=== PATIENT | male | born 1960 | race Caucasian/White ===

== ENCOUNTER 2020-01-08 19:33 | Inpatient (IN) | payer OTHER, SELFPAY ==
--- NOTE | ~2020-01-08 | CT_ITS ---
EXAMINATION: CTA BRAIN/CAROTID DATE: 01/08/2020 20:50 INDICATION: Left-sided hemiparesis and numbness and tingling. TECHNIQUE: Computed tomographic angiography (CTA) of the head and neck was performed with 100 mL Omni paque-350 intravenous contrast. Multiplanar reconstructions and maximum intensity projection 3D-recon structions of the carotid arteries and of the intracranial arteries were created by the technologist on a separate workstation. Precontrast CT of the head was also obtained. Automated exposure control and iterative reconstruction technique were employed.The dose-length product was 1811.12 mGy-cm. COMPARISON: None. FINDINGS: Carotid arteries: There is 10% stenosis of the right carotid bulb relative to normal distal artery lumen diameter (NASC ET criteria). There is small amount of atherosclerotic plaque with 0% stenosis of the left carotid bu lb relative to normal distal artery lumen diameter. The right vertebral artery is dominant with dimin utive left vertebral artery extending through a congenitally small left-sided transverse foramina. Re spiratory motion at the apices of the lungs. Mild cervical spondylosis. Head: Small old lacunar infarcts at the head of the left caudate nucleus, at the right lentiform nucleus an d at the right side of the jasper. No acute intracranial hemorrhage, acute infarction or abnormal extra axial fluid collection. There is mild scattered white matter hypoattenuation consistent with chronic small vessel ischemic disease. Ventricles are normal and symmetric. No mass/mass effect. The orbits , paranasal sinuses and mastoid air cells are normal. Intracranial arteries: Extensive atherosclerotic plaque at the bilateral carotid siphons with mild, <50% stenosis. There is no hemodynamically significant stenosis in the vertebral, basilar and internal carotid arteries. Ther e are no aneurysms identified. The bilateral A1 and left P1 segments are patent. The right posterior cerebral arteries supplied via a patent right posterior communicating artery. There is also a patent anterior communicating artery. Cerebral arterial arborization appears symmetric. IMPRESSION: 1. 10% stenosis of the right carotid bulb relative to normal distal artery lumen diameter (NASCET cri teria). 2. 0% stenosis of the left carotid bulb relative to normal distal artery lumen diameter. 3. Nonhemodynamically significant atherosclerotic plaque at the bilateral carotid siphons. No hemodyn amically significant stenosis or aneurysm of the cerebral arteries. 3. Old lacunar infarcts at the left caudate nucleus, right lentiform nucleus and right jasper. Reviewed, dictated and finalized at location A. IMPRESSION: 1. 10% stenosis of the right carotid bulb relative to normal distal artery lume n diameter (NASCET criteria). 2. 0% stenosis of the left carotid bulb relative to normal distal artery lumen diameter. 3. Nonhemodynamically significant atherosclerotic plaque at the bilateral carot id siphons. No hemodynamically significant stenosis or aneurysm of the cerebral arteries. 3. Old lacunar infarcts at the left caudate nucleus, right lentiform nucleus an d right jasper.
--- NOTE | ~2020-01-08 | MR_ITS ---
EXAMINATION: MR brain/brain stem wo con DATE: 01/09/2020 13:07 INDICATION: Left hemiparesis. TECHNIQUE: Magnetic resonance imaging (MRI) of the brain and brainstem was performed without intraven ous contrast. Sequences included sagittal and axial T1-weighted FSE, axial diffusion-weighted FS EPI, axial T2*-weighted GRE, axial T2-weighted FLAIR Propeller, and axial T2-weighted Propeller. Apparent diffusion coefficient (ADC) maps were created. COMPARISON: Head CT 01/01/2020 FINDINGS: There is an acute infarct in the jasper on the right. There is a punctate acute infarct in th e right frontal lobe deep white matter. There are 2 small acute infarcts in the left frontal lobe scott p white matter. There is a punctate acute infarct in right occipital lobe. There is a punctate acute infarct in the right temporal lobe deep white matter. There is no intracranial hemorrhage or abnormal mass lesion. There are scattered areas of nonspecific increased T2-weighted signal intensity in the cerebral white matter. There are old lacunar infarcts in the bilateral basal ganglia. The ventricles are normal in size. There is mild mucosal thickening in the paranasal sinuses. The orbits are normal. The mastoid air cells are normal. IMPRESSION: 1. Acute infarcts in the jasper, bilateral frontal lobes, right temporal lobe, and right occipital lobe . 2. Old lacunar infarcts in the bilateral basal ganglia. 3. Mild nonspecific cerebral white matter disease, which likely represents chronic small vessel ische yesi disease. Reviewed, dictated and finalized at location A. IMPRESSION: 1. Acute infarcts in the jasper, bilateral frontal lobes, right temporal lobe, an d right occipital lobe. 2. Old lacunar infarcts in the bilateral basal ganglia. 3. 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
[2020-01-08 19:36] VITALS: BP 178/111; PULSE 73; RESP 15; TEMP 36.3; O2SAT 100
--- NOTE | 2020-01-08 19:56 | ECG_ITS ---
Measurements Intervals [place] Rate: 64 P: 60 MI: 172 QRS: 33 QRSD: 100 T: 67 QT: 400 QTc: 413 Interpretive Statements SINUS RHYTHM NORMAL ECG Electronically Signed On 01-09-2020 6:55:34 CDT by Freddy Parker D.O.
[2020-01-08 20:12] LABS: Basophils Absolute Auto 0.1 K/mm3 (0.0-0.1); Basophils Percent Auto 0.7 % (0.2-1.2); Eosinophils Absolute Auto 0.2 K/mm3 (0-0.3); Hematocrit 42.9 % (42.0-52.0); Hemoglobin 14.4 g/dL (14.0-18.0); Immature Granulocyte Absolute 0.08 K/mm3 (0.00-0.031); Lymphocytes Absolute Auto 1.81 K/mm3 (0.9-3.2); Lymphocytes Percent Auto 22.6 % (18.3-44.2); Mean Corpuscular HGB Conc 33.6 g/dl (32-36); Mean Corpuscular Hemoglobin 29.9 pg (26-34); Mean Corpuscular Volume 89.2 fl (80-100); Mean Platelet Volume 10.8 fl (7.4-10.4); Monocytes Absolute Auto 0.7 K/mm3 (0.1-0.6); Monocytes Percent Auto 9.2 % (2.6-8.5); Neutrophils Absolute Auto 5.1 K/mm3 (1.3-6.7); Neutrophils Percent Auto 63.5 % (45.5-73.1); Platelet Count Result 340 k/mm3 (150-375); Red Blood Count 4.81 M/mm3 (4.6-6.20); Red Cell Distribution Width 13.7 % (11.5-14.5)
[2020-01-08 20:24] LABS: Alanine Aminotransferase 32 U/L (4-50); Albumin Level 4.3 g/dL (3.5-5.1); Alkaline Phosphatase 97 U/L (38-126); Anion Gap 10 mmol/L (8-16); Aspartate Amino Transferase 28 U/L (17-59); Bilirubin,Total 0.8 mg/dL (0.2-1.3); Blood Urea Nitrogen 18 mg/dL (9-20); Calcium 9.1 mg/dL (8.4-10.2); Carbon Dioxide 29 mmol/L (22-30); Chloride 103 mmol/L (98-107); Estimated Glomerular Filt Rate 56; Glucose 85 mg/dL (75-110); Potassium 3.3 mmol/L (3.4-5.0); Sodium 142 mmol/L (137-145)
[2020-01-08 20:25] LABS: Partial Thromboplastin Time 28.1 SECONDS (22.3-36.8); Prothrombin Time 12.4 Seconds (11.1-14.7)
[2020-01-08 20:29] LABS: Add Urine Microscopic? YES; Appearance Urine Clear (Clear); Bacteria Urine Trace /hpf; Bilirubin Urine Negative (Negative); Blood Urine Negative (Negative); Color Urine Yellow (Yellow); Glucose Urine UA Negative (Negative); Ketones Urine Negative (Negative); Leukocyte Esterase Ur Negative LEU/UL (Negative); Mucus Urine Few /lpf; Nitrate Urine Negative (Negative); Protein Urine 1+ mg/dL (Negative); Specific Grav Ur 1.027 (1.001-1.035); Squamous Epithelial Cell Urine Rare /hpf (Few)
[2020-01-08] MEDS: POTASSIUM CHLORIDE 20 MEQ TABLET PO (20:31)
--- NOTE | 2020-01-08 20:42 | ED.GENADULT ---
HPI - General Adult General Chief complaint: Neuro Symptoms/Deficit Stated complaint: left sided numbness x1 week Time Seen by Provider: 01/08/20 19:50 Source: patient History of Present Illness HPI narrative: Patient is a 59 y/o male complaining of mild left sided weakness and numbness for about 1 week. There is alleviating or exacerbating factor. He states that his symptoms are waxing and waning. He is able move all 4 extremities and walk. He states that he has been dropping things from left hand intermittently. Related Data Home Medications Medication Instructions Recorded Confirmed carvedilol 6.25 mg PO BID 01/08/20 01/09/20 lisinopril-hydrochlorothiazide 1 tablet PO BID 01/08/20 01/09/20 Allergies Allergy/AdvReac Type Severity Reaction Status Date / Time No Known Allergies Allergy Uncoded 03/23/19 10:35 Review of Systems Constitutional: Constitutional: Denies chills, Denies fever(s), Denies headache(s) and Reports weakness Eyes: Eyes: Denies blurry vision ENT: Denies headache(s) and Denies neck pain Cardiovascular: Cardiovascular: Denies chest pain and Denies dyspnea Respiratory: Respiratory: Denies cough and Denies dyspnea Gastrointestinal: Gastrointestinal: Denies abdominal pain, Denies diarrhea, Denies nausea and Denies vomiting Genitourinary: Genitourinary: Denies hematuria and Denies dysuria Musculoskeletal: Musculoskeletal: Denies back pain and Denies neck pain Neurologic: Denies headache(s), Reports focal weakness, Reports numbness, Reports tingling and Denies weakness [facility] Family History Family History (Updated 01/09/20 @ 00:50 by Mindy Edwards RN) Other Unknown family medical history Social History Social History Smoking status: Never smoker Alcohol intake: unknown Substance use: never Substance use type: does not use Spiritual care concerns: No Exam Const: General: no acute distress and well developed Orientation/consciousness: oriented to person, oriented to place, oriented to time and patient oriented x3 HENMT: Head: normocephalic Ears: external ears normal General nose exam: Normal external nose present Eyes: General: appearance normal, both eyes and all related structures Conjunctivae: conjunctivae normal Neck: Neck: normal visual inspection and full ROM Chest: Chest palpation & inspection: normal inspection of the chest and no tenderness Resp: Effort & Inspection: normal respiratory effort Auscultation: clear to auscultation bilaterally Cardio: Rate: regular rate Rhythm: regular rhythm GI: GI Palp: No abdominal tenderness and Yes Soft to palpation Skin: General skin exam: normal color and turgor normal Neuro: General: oriented to person, oriented to place, oriented to time and patient oriented x3 Cranial nerves: Yes CN's II-XII intact bilaterally Cognition (Neuro): normal cognition Speech: normal speech Motor exam (neuro): 5/5 motor strength present throughout Sensory Exam: Sensory deficit (Neuro) (decreased sensation on left side) Coordination: No [id number] test normal (some diffculty left finger to nose) Extrem: General: normal to inspection, full ROM and no pedal edema Psych: Appearance: grossly normal Mental Status: mental status grossly normal Affect: normal affect Course Consultations Consultation #1: Discussed with Dr. Campa (neurology), who agrees to consult. He recommends MRI and Echo. Date: 01/08/20 Time: 21:36 Consultation #2: Discussed with Dr. Abarca, who agrees to admit. Date: 01/08/20 Time: 23:20 Vital Signs Vital signs: Vital Signs Temperature 36.3 C L 01/08/20 19:36 Pulse Rate 73 01/08/20 19:36 Respiratory Rate 15 01/08/20 19:36 Blood Pressure 178/111 H 01/08/20 19:36 Pulse Oximetry 100 01/08/20 19:36 Temperature 36.4 C L 01/09/20 06:00 Pulse Rate 66 01/09/20 08:00 Respiratory Rate 21 H 01/09/20 06:00 Blood Pressure 151/90 H 01/09/20
[2020-01-08] MEDS: ASPIRIN 81 MG CHEWABLE TABLET 324 MG PO (21:35)
[2020-01-08] MEDS: lisinopriL 20 MG TABLET PO (21:36)
[2020-01-08 21:38] VITALS: BP 225/115; PULSE 89; RESP 18; O2SAT 100
[2020-01-08] MEDS: amLODIPine BESYLATE 5 MG TABLET 10 MG PO (22:00)
--- NOTE | 2020-01-08 22:06 | PC.NURSE ---
pt denies taking home meds, states stopped taking them not working.
[2020-01-08 23:05] VITALS: BP 202/111; PULSE 64; RESP 18; O2SAT 100
[2020-01-09] VITALS (11 sets, daily range): BP systolic 150–201; BP diastolic 85–110; PULSE 60–80; RESP 16–21; TEMP 36.4–36.7; O2SAT 96–100; BMI 37.7
--- NOTE | 2020-01-09 00:27 | ADMGEN ---
This patient, Juan Alberto Saeed, was admitted to 2 Medical Room 261-01. Patient/family oriented to hospital policies and general routines including ID bracelet, bed and alarms, visiting hours, pain management, procedures, bathroom and other care routines, personal items, smoking policy, room service/diet, and visiting hours. Valuables list has been completed. Information on how to activate the Rapid Response Team has been discussed. Patient/Family are encouraged to report perceived risks to care and to ask questions if they do not understand what they are told or what they should do.
--- NOTE | 2020-01-09 01:13 | PC.NURSE ---
Pt agitated and wanted more pillows, yelling at staff that he needed more pillows. Pillows obtained for patient but pt remains agitated and did not wish to answer questions for admission. Questions asked quickly for patient and patient stated he was done and wanted to go to sleep. Pt remains agitated but wants to go to sleep.
--- NOTE | 2020-01-09 06:00 | ECHO_ITS ---
Patient Info Name: Juan Alberto Saeed Age: 59 years : 1960 Gender: Male Ht: 66 in Wt: 240 lbs BSA: 2.30 m2 HR: 57 bpm BP: 188 / 91 mmHg Technical Quality: Good Exam Date: 01/09/2020 11:27 AM Exam Location: [facility] Patient Status: Outpatient Admit Date: 01/08/2020 Staff Ordering Physician: Nirmala Guy MD Manager Mortgage: Salvatore Méndez RDCS, RT Attending Provider: No Grimaldo PA-C Referring Physician: Brooks EDOUARD; Exam Type: CA echo doppler color flow Study Info Indications I63.219 - Cerebral infarction due to unspecified occlusion or stenosis of unspecified vertebral arteries Complete two-dimensional, color flow and Doppler transthoracic echocardiogram is performed. Summary 1. Left ventricular chamber dimension is normal. 2. Left ventricular systolic function is normal, estimated at 60-65%. 3. There is moderately increased left ventricular wall thickness. 4. The left ventricular diastolic function is grade I diastolic dysfunction. 5. E/e' 14 is mildly elevated. 6. Global longitudinal strain is abnormal at -13.1%. 7. The mitral valve has moderately calcified annulus. 8. Dilated inferior vena cava with >50% collapse upon inspiration consistent with elevated right atrial pressure, 10 mmHg. Left Ventricle E/e' 14 is mildly elevated. Global longitudinal strain is abnormal at -13.1%. Left ventricular chamber dimension is normal. Left ventricular systolic function is normal, estimated at 60-65%. There is moderately increased left ventricular wall thickness. The left ventricular diastolic function is grade I diastolic dysfunction. Right Ventricle Right ventricular chamber dimension is normal. Right ventricular systolic function is normal. Left Atria Left atrial chamber dimension is normal. Right Atria Right atrial chamber dimension is normal. Aortic Valve The aortic valve is trileaflet. There is no aortic valve stenosis. There is no aortic valve regurgitation. Pulmonic Valve There is no pulmonic regurgitation. Mitral Valve The mitral valve has moderately calcified annulus. There is no mitral valve stenosis. There is no mitral valve regurgitation. Tricuspid Valve There is no tricuspid valve regurgitation. Pericardium/Pleural There is no pericardial effusion. Inferior Vena Cava Dilated inferior vena cava with >50% collapse upon inspiration consistent with elevated right atrial pressure, 10 mmHg. Aorta The aortic root size at the sinus of Valsalva is normal. Left Ventricular Outflow Tract Name Value Normal LVOT 2D LVOT Diameter 2.1 cm LVOT Doppler LVOT Peak Gradient 5 mmHg LVOT Mean Gradient 3 mmHg LVOT VTI 23 cm LVOT VTI/AV VTI Ratio 1.1 LVOT Stroke Volume 82 ml LVOT CO 4.3 l/min LVOT CI 1.9 l/min/m2 Mitral Valve Name Value Normal
[2020-01-09 06:08] LABS: Cholesterol 157 mg/dL (0-200); HDL Direct 43 mg/dL; Triglycerides 124 mg/dL (<150)
[2020-01-09 06:18] LABS: LDL Cholesterol Direct 93 mg/dL
[2020-01-09] MEDS: lisinopriL 10 MG TABLET PO ×2 (08:16→16:30)
[2020-01-09] MEDS: hydroCHLOROthiazide 12.5 MG CAPSULE PO ×2 (08:16→16:30)
[2020-01-09] MEDS: ASPIRIN 81 MG CHEWABLE TABLET PO (08:16)
[2020-01-09] MEDS: carvediloL 6.25 MG TABLET PO ×2 (08:16→16:30)
--- NOTE | 2020-01-09 14:39 | PM.IMHP ---
H&P: HPI History of Present Illness Date/Time: 01/09/20 14:39 Chief complaint: left sided weakness Narrative: Juan Alberto Saeed is a 59 year old male For the past medical history of hypertension does not regularly see primary care doctor who presented emergency room for left-sided weakness x1 week. Patient states that he was working outside last Wednesday and came inside and felt off. He said his left arm and leg became tingly and when he got up to walk he could not walk straight. 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 He has not had any problems with speech or swallowing. He also has had some blurry vision and dizziness since this all happened. He denies chest pain, shortness of breath, palpitations, rashes or wounds. with permission the patient, I asked the girlfriend if she has noticed any changes. She has not noticed any NEW anger or impulsivity Review of Systems Review of Systems: All systems reviewed & are unremarkable except as noted in HPI and below PMFSH Past Medical History Medical History (Updated 01/09/20 @ 15:43 by No Grimaldo PA-C) Hypertension Surgical History Surgical History (Updated 01/09/20 @ 15:43 by No Grimaldo PA-C) H/O umbilical hernia repair Family History Family History (Updated 01/09/20 @ 15:44 by oN Grimaldo PA-C) Mother Medical history unknown Other Unknown family medical history Social History Social History (Updated 01/09/20 @ 15:45 by No Grimaldo PA-C) Social History: patient does not smoke, never smoked cigarettes, no marijuana or drugs. Would like to be a full code. If he is unable to make decisions for him he wants no one to be his surrogate decision maker and ' god will make all the decisions'. he understands he can designate anyone at any time. He is not working at this time and not on disability. Smoking status: Never smoker Alcohol intake: unknown Substance use: never Substance use type: does not use Spiritual care concerns: No Meds Home Medications and Allergies Home Medications Medication Instructions Recorded Confirmed Type carvedilol 6.25 mg PO BID 01/08/20 01/09/20 History lisinopril-hydrochlorothiazide 1 tablet PO BID 01/08/20 01/09/20 History Allergies Allergy/AdvReac Type Severity Reaction Status Date / Time No Known Allergies Allergy Uncoded 03/23/19 10:35 Vital Signs Vital Signs - 24 hr 01/08/20 19:36 01/08/20 21:38 01/08/20 23:05 Temperature 97.4 F L Pulse Rate 73 89 64 Respiratory Rate 15 18 18 Blood Pressure 178/111 H 225/115 H 202/111 H Pulse Oximetry 100 100 100 01/09/20 00:18 01/09/20 01:12 01/09/20 02:00 Temperature 98.0 F 98.1 F Pulse Rate 65 80 76 Respiratory Rate 18 20 Blood Pressure 201/110 H 188/91 H Pulse Oximetry 100 99 01/09/20 04:00 01/09/20 06:00 01/09/20 08:00 Temperature 97.5 F L Pulse Rate 68 76 66 Respiratory Rate 21 H Blood Pressure 151/90 H Pulse Oximetry 100 01/09/20 12:00 Temperature Pulse Rate 60 Respiratory Rate Blood Pressure Pulse Oximetry Exam Narrative: Exam Narrative: General:Well developed well nourished patient Resting comfortably in bed in no acute distress HEENT: Normocephalic, atraumatic, PERRL, Sclerae anicteric, oral mucosa moist. Neck: Supple Resp: CTA Heart: RRR, telemetry shows no abnormalities other than an occasional PVC Abd: Soft, non- distended. No pain to palpation. Positive bowel sounds Skin: Warm and dry Extremities: No swelling, erythema or pain to palpation Neuro: Alert and Oriented x4 . CN 2-12 intact. No focal neurological deficits. Able to do [id number] bilaterally and rapid alternating movements. 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 H&P: Results Labs Labs: Short CBC 01/08/20 Range/Units 20:07 WBC 8.0 (4.5-10.0) K/mm3 Hgb 14.4 (14.0-18.0) g/dL Hct 42.9 (42.0-52.0) % Plt Count 340 (150-375) k/mm3 [facility] 12/22
--- NOTE | 2020-01-09 15:05 | WPDNEURCNPN ---
Assessment and Plan Assessment and plan (1) Hemianesthesia: Code(s): R20.0 - Anesthesia of skin Status: Acute (2) Brainstem stroke: Code(s): I63.9 - Cerebral infarction, unspecified Status: Acute (3) Ischemic stroke of frontal lobe: Code(s): I63.9 - Cerebral infarction, unspecified Status: Acute (4) Occipital stroke: Code(s): I63.9 - Cerebral infarction, unspecified Status: Acute Additional Plan patient is already on aspirin I hope is being monitor for any evidence of atrial fibrillation he would need a cardiology consultation including the transesophageal echocardiogram to make sure he does not have a cardiac source for his bilateral strokes on the other hand the patient has not seen any physicians in the past we do not know exactly what other medical conditions he have underlying ex of the high blood pressure He was not quite receptive to this examiner in wanted to go to sleep however his girl friend was present and I told her that he needs the further workup Consult date: 01/09/20 Time Seen: 14:30 HPI: Juan Alberto Saeed is a 59 year old male is right-handed and quite upset because I woke him up from his sleep his girlfriend is present and whatever information I was able to extract from him and from his girlfriend is as follows The patient has had and numbness of the left side for almost 8 days today without any headache nausea vomiting chest pain or shortness of breath his numbness remains the same however the motor examination is clearly is nonfocal his brain MRI reveals multiple bilateral strokes including the brainstem and it is likely that it is hypertensive in nature however it is also likely from the cardiac source he has not been able to see any primary care physician for many years and he probably does not have 1 the headache neck and CTA are clearly negative results of the echocardiogram are pending he will need a full cardiac workup to rule out any evidence of the cardiac source including the [facility] Family History Family History Other Unknown family medical history Social History Social History Smoking status: Never smoker Alcohol intake: unknown Substance use: never Substance use type: does not use Spiritual care concerns: No Meds Home Medications and Allergies Home Medications Medication Instructions Recorded Confirmed Type carvedilol 6.25 mg PO BID 01/08/20 01/09/20 History lisinopril-hydrochlorothiazide 1 tablet PO BID 01/08/20 01/09/20 History Allergies Allergy/AdvReac Type Severity Reaction Status Date / Time No Known Allergies Allergy Uncoded 03/23/19 10:35 Vital Signs Vital Signs - 24 hr 01/08/20 19:36 01/08/20 21:38 01/08/20 23:05 Temperature 36.3 C L Pulse Rate 73 89 64 Respiratory Rate 15 18 18 Blood Pressure 178/111 H 225/115 H 202/111 H Pulse Oximetry 100 100 100 01/09/20 00:18 01/09/20 01:12 01/09/20 02:00 Temperature 36.7 C 36.7 C Pulse Rate 65 80 76 Respiratory Rate 18 20 Blood Pressure 201/110 H 188/91 H Pulse Oximetry 100 99 01/09/20 04:00 01/09/20 06:00 01/09/20 08:00 Temperature 36.4 C L Pulse Rate 68 76 66 Respiratory Rate 21 H Blood Pressure 151/90 H Pulse Oximetry 100 01/09/20 12:00 Temperature Pulse Rate 60 Respiratory Rate Blood Pressure Pulse Oximetry Exam Const: General: comfortable and no acute distress HENMT: General nose exam: Normal nares present Mouth: Yes moist mucous membranes Eyes: General: appearance normal, both eyes and all related structures Neck: Neck: supple and no JVD Resp: Effort & Inspection: normal respiratory effort Auscultation: clear to auscultation bilaterally Cardio: Rate: regular rate Rhythm: regular rhythm GI: Auscultation: normal bowel sounds Skin: General skin exam: normal color and no rashes or lesions noted Neuro: O
--- NOTE | 2020-01-09 15:18 | PCPTNOTE ---
Spoke with nursing. Nursing reports the patient has no skilled PT needs-is independent with mobility. Nursing reports patient being verbally aggressive right now and has not yet been informed of CVA yet-mri results just received. Note put in by PT to discontinue therapy. Ellen Unger PT
[2020-01-10] VITALS (11 sets, daily range): BP systolic 145–172; BP diastolic 81–94; PULSE 55–74; RESP 14–16; TEMP 36.6–36.8; O2SAT 97–100
[2020-01-10] MEDS: ASPIRIN 81 MG CHEWABLE TABLET PO (09:30)
[2020-01-10] MEDS: carvediloL 6.25 MG TABLET PO (09:30)
[2020-01-10] MEDS: ATORVASTATIN 20 MG TABLET PO (09:31)
[2020-01-10] MEDS: lisinopriL 10 MG TABLET PO (09:31)
[2020-01-10] MEDS: hydroCHLOROthiazide 12.5 MG CAPSULE PO (09:31)
[2020-01-10 09:38] LABS: Basophils Percent Auto 0.6 % (0.2-1.2); Eosinophils Absolute Auto 0.3 K/mm3 (0-0.3); Eosinophils Percent Auto 3.9 % (0-4.4); Hematocrit 40.7 % (42.0-52.0); Hemoglobin 13.9 g/dL (14.0-18.0); Immature Granulocyte Absolute 0.06 K/mm3 (0.00-0.031); Immature Granulocyte Percent A 0.9 % (0-0.5); Lymphocytes Absolute Auto 1.63 K/mm3 (0.9-3.2); Lymphocytes Percent Auto 23.6 % (18.3-44.2); Mean Corpuscular HGB Conc 34.2 g/dl (32-36); Mean Corpuscular Hemoglobin 30.2 pg (26-34); Mean Corpuscular Volume 88.3 fl (80-100); Mean Platelet Volume 10.5 fl (7.4-10.4); Monocytes Absolute Auto 0.6 K/mm3 (0.1-0.6); Monocytes Percent Auto 8.8 % (2.6-8.5); Neutrophils Absolute Auto 4.3 K/mm3 (1.3-6.7); Neutrophils Percent Auto 62.2 % (45.5-73.1); Platelet Count Result 317 k/mm3 (150-375); Red Blood Count 4.61 M/mm3 (4.6-6.20); Red Cell Distribution Width 13.8 % (11.5-14.5); White Blood Count 6.9 K/mm3 (4.5-10.0)
[2020-01-10 09:50] LABS: Magnesium 1.9 mg/dL (1.6-2.3)
[2020-01-10 09:57] LABS: Anion Gap 8 mmol/L (8-16); Blood Urea Nitrogen 21 mg/dL (9-20); Calcium 8.6 mg/dL (8.4-10.2); Carbon Dioxide 27 mmol/L (22-30); Chloride 102 mmol/L (98-107); Estimated CRCL calculation 61 ml/min; Estimated Glomerular Filt Rate 56; Glucose 99 mg/dL (75-110); Potassium 3.2 mmol/L (3.4-5.0); Sodium 137 mmol/L (137-145)
--- NOTE | 2020-01-10 10:40 | PC.NURSE ---
Patient agreeable to LINDA at this time. Called to notify Dr. Vaz. He stated he would contact anesthesiology to verify their schedule/timing and to keep patient NPO at this time.
--- NOTE | 2020-01-10 11:18 | PM.CNCAR ---
Assessment and Plan Assessment and plan (1) Acute CVA (cerebrovascular accident): Code(s): I63.9 - Cerebral infarction, unspecified Status: Acute Assessment and Plan: Acute infarction in the jasper, 2 small infarcts left frontal lobe, punctate right temporal lobe, punctate right occipital lobe with old lacunar infarction in bilateral basal ganglia. Pattern concerning for embolic showering possibly related to undiagnosed atrial fibrillation/flutter although there is no prior history, symptoms, or documentation thus far. We discussed mechanisms for acute CVA particularly given bilateral multiple areas and my concern for intracardiac source of emboli. we discussed potential advantages with doing transesophageal echocardiogram to exclude intracardiac thrombus, evaluate more definitively for intracardiac shunt at atrial level (ASD/PFO) and how this would changes management. We discussed role and indications for systemic anticoagulation versus aspirin, potential for ASD/PFO closure given stroke if identified if appropriate. Pt verbalized understanding. stated he wanted to discuss with his girlfriend further before making a decision. Patient explained he was distrustful of other people, did not like seeing doctors, or taking medications. He initially started to imply all that was being done for him was to pad the bill on his insurance. He quickly abandoned this thought after further discussion and my explanation that he is not being forced to do anything. I simply am here to offer my service to help him understand what has happened to him and how best to reduce his risk for complications. He appreciated our discussion and will consider LINDA. He states he has a very strong gag reflex and that he will have to knocked out with Anesthesiology. Risks, benefits, alternatives discussed. -Outpatient 20 day commissioner of relocation services to assess for A.Fib/flutter -ASA, statin, ELIS-I. (2) Hypertension: Qualifiers: Hypertension type: unspecified Qualified Code(s): I10 - Essential (primary) hypertension Code(s): I10 - Essential (primary) hypertension Status: Acute Assessment and Plan: uncontrolled presentation. Remains elevated. Continue antihypertensive regimen. (3) PVCs (premature ventricular contractions): Code(s): I49.3 - Ventricular premature depolarization Status: Acute Assessment and Plan: Asymptomatic, occasional noted on telemetry. No atrial fibrillation and/or atrial flutter observed thus far on telemetry. No prior known history or symptoms suggestive of AFib/flutter. (4) Dyslipidemia: Code(s): E78.5 - Hyperlipidemia, unspecified Status: Acute Assessment and Plan: Goal LDL less than 70 given CVA. Continue statin therapy. Would advise increased to 40 mg at bedtime. History of Present Illness History of Present Illness Consult date/time: Date of service: 01/10/20 11:18 This is a cardiology consultation at [facility] LINDA in setting of acute embolic stroke. Requesting physician: No Grimaldo PA-C Consult reason: Other (stroke, transesophageal echocardiogram) Reason For Visit: left sided weakness Narrative: patient is a 59-year-old male does not receive routine medical care with a past medical history significant for hypertension, dyslipidemia presented to the emergency department complains of 1 week of left-sided upper and lower extremity weakness numbness in his fingers and hand. He states he is working out in the heat not drinking enough water and feels this is why his symptoms began. 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 Denies difficulty swallowing, dysphagia, choking, confusion, bleeding, chest pain, palpitations or shortness of breath. No syncope, near-syncope lower extremity edema orthop
--- NOTE | 2020-01-10 12:48 | WPDANESEPPF ---
Anes - Initial Pre Proc Eval Procedure: Operation Date: 01/10/20 13:30 Proposed Procedures p Trans Esophageal Echo - Jarod Bruno MD Date/Time: 01/10/20 12:48 Pre Op Diagnosis: left sided weakness Patient Data Age: 59 Gender: M Height: 1.68 m Weight: 106.1 kg Last Vital Signs Temp 36.6 C 01/10/20 09:36 Pulse 60 01/10/20 12:00 Resp 16 01/10/20 09:36 BP 165/94 H 01/10/20 09:36 Pulse Ox 100 01/10/20 09:36 Allergies Allergy/AdvReac Type Severity Reaction Status Date / Time No Known Allergies Allergy Uncoded 03/23/19 10:35 Home Medications Medication Instructions Recorded Confirmed Type carvedilol 6.25 mg PO BID 01/08/20 01/09/20 History lisinopril-hydrochlorothiazide 1 tablet PO BID 01/08/20 01/09/20 History Laboratory Tests 01/10/20 01/10/20 01/10/20 09:22 09:22 09:22 WBC 6.9 K/mm3 K/mm3 (4.5-10.0) RBC 4.61 M/mm3 M/mm3 (4.6-6.20) Hgb 13.9 g/dL L g/dL (14.0-18.0) Hct 40.7 % L % (42.0-52.0) MCV 88.3 fl fl (80-100) MCH 30.2 pg pg (26-34) MCHC 34.2 g/dl g/dl (32-36) RDW 13.8 % % (11.5-14.5) Plt Count 317 k/mm3 k/mm3 (150-375) MPV 10.5 fl H fl (7.4-10.4) Immature Gran % (Auto) 0.9 % H % (0-0.5) Neut % (Auto) 62.2 % % (45.5-73.1) Lymph % (Auto) 23.6 % % (18.3-44.2) [place] % (Auto) 8.8 % H % (2.6-8.5) Eos % (Auto) 3.9 % % (0-4.4) Baso % (Auto) 0.6 % % (0.2-1.2) Lymph # (Auto) 1.63 K/mm3 K/mm3 (0.9-3.2) [place] # (Auto) 0.6 K/mm3 K/mm3 (0.1-0.6) Eos # (Auto) 0.3 K/mm3 K/mm3 (0-0.3) Baso # (Auto) 0.0 K/mm3 K/mm3 (0.0-0.1) Abs Immat Gran (auto) 0.06 K/mm3 H K/mm3 (0.00-0.031) Absolute Neuts (auto) 4.3 K/mm3 K/mm3 (1.3-6.7) Absolute Nucleated RBC 0.0 K/mm3 K/mm3 (0.0-0.012) Nucleated RBC % 0.0 % % (0.0-0.2) Sodium 137 mmol/L mmol/L (137-145) Potassium 3.2 mmol/L L mmol/L (3.4-5.0) Chloride 102 mmol/L mmol/L (98-107) Carbon Dioxide 27 mmol/L mmol/L (22-30) Anion Gap 8 mmol/L mmol/L (8-16) BUN 21 mg/dL H mg/dL (9-20) Creatinine 1.30 mg/dL mg/dL (0.7-1.3) Estim Creat Clear Calc 61 ml/min ml/min Estimated GFR 56 L (59 - ) Glucose 99 mg/dL mg/dL (75-110) Calcium 8.6 mg/dL mg/dL (8.4-10.2) Magnesium 1.9 mg/dL mg/dL (1.6-2.3) ECG: Date of Service: 01/08/20 Procedure(s): CA 12 lead EKG Accession Number(s): [id number] cc: ~ Measurements Intervals [place] Rate: 64 P: 60 [place]: 172 QRS: 33 QRSD: 100 T: 67 QT: 400 QTc: 413 Interpretive Statements SINUS RHYTHM NORMAL ECG Electronically Signed On 01-09-2020 6:55:34 CDT by Freddy Parker D.O. Dictated By: Freddy Parker DO 01/08/201945 Patient hx anesthesia problems: none Family hx anesthesia problems: none [facility] Past Medical History Medical History (Updated 01/10/20 @ 12:51 by Eren Griffin MD) Acute CVA (cerebrovascular accident) Hypertension Left-sided weakness Obesity PVCs (premature ventricular contractions) Surgical History Surgical History H/O umbilical hernia repair Family History Family History Mother Medical history unknown Other Unknown family medical history Social History Social History Social History: patient does not smo
--- NOTE | 2020-01-10 13:25 | PC.NURSE ---
Patient off floor for LINDA.
--- NOTE | 2020-01-10 14:11 | WPDTEECHO ---
LINDA TransEsophageal Echocardiogram Date of procedure: 01/10/20 Procedure Type: Transesophageal echocardiogram Diagnosis: Acute stroke Indications: stroke, evaluate for cardiac source of emboli Image Quality: good Findings: Brief history present illness: Patient is a 59-year-old male with a history of uncontrolled hypertension, dyslipidemia who presented with left-sided weakness found have acute multiple bilateral emboli with concern for possible cardiac source with recommendations from Neurology to proceed with transesophageal echocardiogram. Procedure in detail: After verbal and written informed consent was obtained the patient risks, benefits, and alternatives explained in detail the patient agreed to proceed with the plan of care as outlined above. The patient was evaluated at bedside in the PACU. The posterior oropharynx, neck, and jaw angle all within normal limits on examination. Lungs were clear to auscultation. See Anesthesiology documentation for anesthesia administration details and protocol. The patient was then placed in the appropriate 30 to 45 degree angle supine position at a slight left lateral decubitus position. Patient was monitored throughout the study with telemetry, oxygen saturation, end-tidal CO2 monitoring, blood pressure, heart rate, and respirations. After placement of the oral bite block, the transesophageal echocardiogram probe was advanced through the oral bite block into the posterior hypopharynx and into the esophagus easily and without complication. Multiple, multiplanar echocardiographic images were obtained in multiple standard re- projections. Pulsed wave, continuous-wave, and color-flow Doppler were utilized in conjunction with this study. At the conclusion of the study, the transesophageal echocardiogram probe was removed easily and without complication. The patient tolerated the procedure well without difficulty. Patient was in sinus rhythm throughout the study. Moderate Sedation/Anesthesia administration: Please see anesthesiology documentation for anesthesia administration details and protocol. Findings: Left ventricular size and systolic function within normal limits without wall motion abnormalities with ejection fraction of 60%. moderate concentric LVH. Right ventricular size and systolic function within normal limits. Left atrial size is normal. Right atrial size is normal. Interatrial septum is anatomically normal without evidence of shunt with color-flow Doppler nor with injection of agitated saline with and without Valsalva. Mitral valve is anatomically normal with preserved leaflet excursion and trace to mild regurgitation. The tricuspid valve is anatomically normal with normal leaflet excursion with mild regurgitation identified. No mobile elements identified. The aortic valve was an anatomically normal 3 leaflet structure with normal leaflet excursion and trace regurgitation identified. Pulmonic valve was not well visualized, however, trivial regurgitation was identified. The left atrial appendage was an anatomically normal structure with prominent pectinate muscles without thrombus or vegetation identified. Left atrial appendage velocities averaged approximately 80/90 centimeters/second. Left upper pulmonary venous flow consistent with sinus rhythm and without significant systolic flow reversal. Deep transgastric views were obtained in multiple standard re-projections. No additional pathology identified. The pericardium was anatomically normal without significant pericardial effusion. The aorta was assessed throughout its visualized extent in the descending, thoracic, and ascending aorta. There was diffuse intimal thickening with mild focal plaquing without mobile elements less than 5 mm in diameter at the mid to proximal thoracic aorta level. The diameter of the aorta was normal. Complications: None Conclusions: No intracardiac shunt with injection of agitated saline. No thrombus in left atrial
--- NOTE | 2020-01-10 14:30 | PC.NURSE ---
Patient returned from LINDA. Report received from TEO Mckenzie.
--- NOTE | 2020-01-10 15:38 | PM.DS ---
DS: Admitting Diagnosis Admitting Diagnosis Admitting Diagnosis: left sided weakness DS: Discharge Diagnosis Discharge Diagnosis (1) Acute CVA (cerebrovascular accident): Code(s): I63.9 - Cerebral infarction, unspecified Status: Acute Assessment and Plan: ----- MRI shows multiple areas of infarct mostly on the right side but also bilateral frontal lobe infarctions. He does have a history of bilateral basal ganglia infarcts as well. Carotids did not appear to be occluded. Lipid panel reasonable. Continue aspirin and atorvastatin. LINDA normal. Will follow up with pcp to get a heart monitor (2) Left-sided weakness: Code(s): R53.1 - Weakness Status: Acute Assessment and Plan: ----- Patient has numbness and tingling to this area but overall does not look like he has much residual weakness. cleared by PT (3) Hypertension: Qualifiers: Hypertension type: unspecified Qualified Code(s): I10 - Essential (primary) hypertension Code(s): I10 - Essential (primary) hypertension Status: Acute Assessment and Plan: ----- last blood pressure 165/82 Continue Coreg, lisinopril, and hydrochlorothiazide. he was taken off a heart healthy diet And is now on a regular diet due to the inability to tolerate it here in the hospital. DS: Summary Hospital Course Reason for hospitalization: Acute CVA Hospital Course: 59-year-old male who presented emergency room for left-sided weakness and numbness for 1 week found to have acute CVA. Vitals in the ER were temperature 36.3?, pulse 73, respiratory rate 18, blood pressure 178/111, pulse ox 100 room air. CBC within normal limits.On aspirin and admitted to the hospitalist service. MRI of the brain showed acute infarcts in the jasper, bilateral frontal lobes, right temporal lobe, and right occipital lobe. He also showed old infarcts in the bilateral basal ganglia. He underwent a LINDA which did not show any thrombus in the right atrium. The patient had no neurological deficits was educated about the importance of continuing aspirin therapy. He also is going to follow-up with his primary care physician for a heart monitor. Overall, the patient was stable at discharge and educated about the worrisome signs and symptoms come back to emergency room. Status at Discharge Functional status at discharge: independent ambulation Overall status at discharge: patient is back to baseline Time Spent with Patient Time attestation: Total time spent providing and/or coordinating discharge services:35 min Time spent: Greater than 30 minutes Exam Narrative: Exam Narrative: General:Well developed well nourished patient Resting comfortably in bed in no acute distress HEENT: Normocephalic, atraumatic, PERRL, Sclerae anicteric, oral mucosa moist. Neck: Supple Resp: CTA Heart: RRR, telemetry shows no abnormalities other than an occasional PVC Abd: Soft, non- distended. No pain to palpation. Positive bowel sounds Skin: Warm and dry Extremities: No swelling, erythema or pain to palpation Neuro: Alert and Oriented x4 . CN 2-12 intact. No focal neurological deficits. Able to do [id number] bilaterally and rapid alternating movements. Inclusion Manager strength 5/5. DS: Data Data Completed and Pending Labs on day of discharge: Labs from last 24 hours 01/10/20 01/10/20 01/10/20 09:22 09:22 09:22 WBC 6.9 RBC 4.61 Hgb 13.9 L Hct 40.7 L MCV 88.3 MCH 30.2 MCHC 34.2 RDW 13.8 Plt Count 317 MPV 10.5 H Immature Gran % (Auto) 0.9 H Neut % (Auto) 62.2 Lymph % (Auto) 23.6 [place] % (Auto) 8.8 H Eos % (Auto) 3.9 Baso % (Auto) 0.6 Lymph # (Auto) 1.63 [place] # (Auto) 0.6 Eos # (Auto) 0.3 Baso # (Auto) 0.0 Abs Immat Gran (auto) 0.06 H Absolute Neuts (auto) 4.3 Absolute Nucleated RBC 0.0 Nucleated RBC % 0.0 Sodium 137 Potassium 3.2 L Chloride 102 Carbon Dioxide 27 Anio
== END 2020-01-10 16:29 | disposition home or self-care (01) | DRG 65 ==
LOC: ANHED 23:33 → ANH2MED 01-09 00:09
PROVIDERS: Internal Medicine Cardiovascular Disease; Physician Assistant; Admitting Provider Family Medicine; Emergency Provider Emergency Medicine; Visit Provider Family Medicine
PROC: B24BZZ4 Ultrasonography of Heart with Aorta, Transesophageal (ICD-10-PCS; CPT 93312; principal; 2020-01-10 13:30)
DX: I63.9 Cerebral infarction, unspecified (principal); G81.94 Hemiplegia, unspecified affecting left nondominant side; R20.2 Paresthesia of skin; E66.9 Obesity, unspecified; Z68.37 Body mass index [BMI] 37.0-37.9, adult; I49.3 Ventricular premature depolarization; I10 Essential (primary) hypertension; E78.5 Hyperlipidemia, unspecified; R29.702 NIHSS score 2
CPT/HCPCS: 36415; 70496; 70498; 70551; 80048; 80053; 80061; 81001; 83735; 85025; 85610; 85730; 93005; 93306; 93312; 93320; 93325; 96374; 97161; 99285; A9270; G0378; J2060; J7040; Q9967

== ENCOUNTER 2022-01-20 08:30 | Inpatient (IN) | payer SELFPAY ==
[2022-01-20] VITALS (23 sets, daily range): BP systolic 139–190; BP diastolic 92–129; PULSE 70–112; RESP 19–44; TEMP 35.7–36.2; O2SAT 90–100; BMI 35.0
--- NOTE | ~2022-01-20 | XR_ITS ---
EXAMINATION: XR chest 1V portable DATE: 01/21/2022 07:48 INDICATION: Shortness of breath. TECHNIQUE: A single frontal view of the chest was obtained. COMPARISON: Chest 2 views 01/20/2022, chest CT 01/20/2022 FINDINGS: There are airspace opacities in right mid and lower lung zones and left lower lung zone. Th ere are small pleural effusions. No pneumothorax. Cardiomegaly is noted. Calcified hilar lymph nodes are consistent with old granulomas disc disease. IMPRESSION: 1. Airspace opacities in right mid and lower lung zones and left lower lung zone, likely atelectasis. 2. Small pleural effusions. 3. Cardiomegaly. Reviewed, dictated and finalized at location A. IMPRESSION: 1. Airspace opacities in right mid and lower lung zones and left lower lung zon e, likely atelectasis. 2. Small pleural effusions. 3. Cardiomegaly.
--- NOTE | ~2022-01-20 | XR_ITS ---
EXAMINATION: [id number] DATE: 01/21/2022 12:48 INDICATION: Right pleural effusion status post thoracentesis. TECHNIQUE: A single frontal view of the chest was obtained. COMPARISON: Chest CT 01/20/2022, chest single view 01/21/2022 FINDINGS: There is mild atelectasis at left lung base. No pleural effusion or pneumothorax. Cardiomeg mónica is noted. Calcified hilar lymph nodes are consistent with old granulomatous disease. IMPRESSION: 1. Mild atelectasis at left lung base. 2. Cardiomegaly. Reviewed, dictated and finalized at location A.
--- NOTE | ~2022-01-20 | US_ITS ---
EXAMINATION: US thoracentesis DATE: 01/21/2022 12:58 INDICATION: pleural effusion TECHNIQUE: The procedure and its risks, benefits, and alternatives were discussed with the patient. P otential risks discussed included bleeding, infection, and pneumothorax. The patient understood the r isks and agreed to proceed. The skin was prepped and draped in sterile fashion. 1% lidocaine was used for local anesthesia. Under ultrasound guidance, a 5 Fr catheter with trochar was advanced into the right pleural effusion. Fluid was aspirated. The catheter was removed, and a dressing was applied. Th ere were no immediate complications. FINDINGS: Ultrasound images demonstrate a right pleural effusion and the catheter within the fluid. IMPRESSION: 1. Successful ultrasound-guided thoracentesis yielding 300 mL of serosanguineous fluid. Reviewed, dictated and finalized at location A. IMPRESSION: 1. Successful ultrasound-guided thoracentesis yielding 300 mL of serosanguineo us fluid.
--- NOTE | ~2022-01-20 | CT_ITS ---
EXAMINATION: CTA chest PE protocol DATE: 01/20/2022 12:07 INDICATION: Shortness of breath TECHNIQUE: Computed tomography angiography (CTA) of the chest was performed with 100 mL Omnipaque-350 intravenous contrast timed to evaluate the pulmonary arteries. Coronal maximum intensity projection 3D-reconstructions were created by the technologist. Automated exposure control and iterative reconst ruction technique were employed. Exam dose: 791.18 mGy-cm total exam DLP. COMPARISON: 01/20/2022 AP and lateral chest FINDINGS: There is diagnostic contrast enhancement of the pulmonary arteries and no evidence of pulmo nary embolism. There is moderate right and mild left layering free pleural effusion, with associated primarily bilat eral lower lobe dependent atelectasis. Right upper lobe discoid atelectasis and/or scarring. There ar e scattered patchy groundglass infiltrates and mild focal infiltrate in the anterolateral right upper lobe. Differential necrosis includes atelectasis, pneumonia and pulmonary edema. Heart size is withi n normal limits. Coronary artery calcifications. Trace pericardial fluid. No thoracic aortic aneurysm. Calcified aortopulmonary window and bilateral hilar nodes consistent with old pulmonary granulomatous disease. No hilar or mediastinal mass lesion or lymphadenopathy. Small sliding hiatal hernia. Diffuse idiopathic skeletal hyperostosis of the thoracic spine. IMPRESSION: No evidence of pulmonary embolism Right upper lobe discoid atelectasis and/or scarring. Scattered patchy groundglass and focal infiltra neeraj; consider pneumonia, atelectasis, pulmonary edema Moderate right and mild left pleural effusions with associated compressive bilateral lower lobe atele ctasis Reviewed, dictated and finalized at Location A. Reviewed, dictated and finalized at location B. IMPRESSION: No evidence of pulmonary embolism Right upper lobe discoid atelectasis and/or scarring. Scattered patchy groundgl ass and focal infiltrates; consider pneumonia, atelectasis, pulmonary edema Moderate right and mild left pleural effusions with associated compressive bila teral lower lobe atelectasis
--- NOTE | ~2022-01-20 | XR_ITS ---
EXAMINATION: XR chest 1V portable DATE: 01/22/2022 15:05 INDICATION: Pleural effusion. TECHNIQUE: A single frontal view of the chest was obtained. COMPARISON: Chest single view 01/21/2022 FINDINGS: There is a small left pleural effusion. No pneumonia or pneumothorax. The heart size is nor mal. Calcified hilar lymph nodes are consistent with old granulomatous disease. IMPRESSION: 1. Stable small left pleural effusion. Reviewed, dictated and finalized at location A.
--- NOTE | ~2022-01-20 | NM_ITS ---
EXAMINATION: NM mukesh stress w perfusion DATE: 01/22/2022 09:49 INDICATION: Chest pain. Congestive heart failure. TECHNIQUE: Rest images were obtained following intravenous administration of 11.2 mCi Tc99m tetrofosm in (Myoview). The patient was infused intravenously with Lexiscan (regadenoson). Then, 33.0 mCi Tc99m tetrofosmin (Myoview) was administered intravenously, and stress images were obtained. Data was georgina nstructed into short axis and horizontal and vertical long axis SPECT images. Gated SPECT images were also obtained. COMPARISON: Chest CT 01/20/2022 FINDINGS: There is a large, severe, partially reversible perfusion defect involving left ventricular apex, apical inferior, apical lateral, and mid inferolateral segments, and mid to basal anterolateral segments of left ventricle, consistent with mixed infarct and ischemia. There is global hypokinesis . Left ventricular ejection fraction measures 38%. IMPRESSION: 1. Large area of severe mixed infarct and ischemia involving left ventricular apex, apical inferior, apical lateral, and mid inferolateral segments, mid to basal anterolateral segments of left ventricle . 2. Decreased left ventricular ejection fraction measuring 38%. Reviewed, dictated and finalized at location A. IMPRESSION: 1. Large area of severe mixed infarct and ischemia involving left ventricular a pex, apical inferior, apical lateral, and mid inferolateral segments, mid to ba antoni anterolateral segments of left ventricle. 2. Decreased left ventricular ejection fraction measuring 38%.
--- NOTE | ~2022-01-20 | XR_ITS ---
EXAMINATION: XR chest 2V DATE: 01/20/2022 09:21 INDICATION: Shortness of breath. TECHNIQUE: Frontal and lateral views of the chest were obtained. COMPARISON: None. FINDINGS: There are interstitial opacities in the mid and lower lung zones, consistent with mild pulm onary edema. No pleural effusion or pneumothorax. The heart size is normal. IMPRESSION: 1. Mild pulmonary edema. Reviewed, dictated and finalized at location A. IMPRESSION: 1. Mild pulmonary edema.
--- NOTE | 2022-01-20 08:35 | ECG_ITS ---
Measurements Intervals [place] Rate: 106 P: 59 NM: 155 QRS: 55 QRSD: 109 T: 90 QT: 374 QTc: 497 Interpretive Statements SINUS TACHYCARDIA WITH FREQUENT VENTRICULAR PREMATURE COMPLEXES NONSPECIFIC ST & T-WAVE ABNORMALITY Electronically Signed On 01-20-2022 11:43:11 CDT by Rip Haider M.D.
[2022-01-20 08:59] LABS: Basophils Absolute Auto 0.1 K/mm3 (0.0-0.1); Basophils Percent Auto 0.5 % (0.2-1.2); Eosinophils Absolute Auto 0.1 K/mm3 (0-0.3); Eosinophils Percent Auto 1.1 % (0-4.4); Hematocrit 43.1 % (42.0-52.0); Hemoglobin 13.7 g/dL (14.0-18.0); Immature Granulocyte Absolute 0.04 K/mm3 (0.00-0.031); Immature Granulocyte Percent A 0.4 % (0-0.5); Lymphocytes Absolute Auto 1.01 K/mm3 (0.9-3.2); Lymphocytes Percent Auto 9.6 % (18.3-44.2); Mean Corpuscular HGB Conc 31.8 g/dl (32-36); Mean Corpuscular Hemoglobin 29.1 pg (26-34); Mean Corpuscular Volume 91.7 fl (80-100); Mean Platelet Volume 10.5 fl (7.4-10.4); Monocytes Absolute Auto 0.5 K/mm3 (0.1-0.6); Neutrophils Absolute Auto 8.8 K/mm3 (1.3-6.7); Neutrophils Percent Auto 83.4 % (45.5-73.1); Platelet Count Result 267 k/mm3 (150-375); Red Cell Distribution Width 15.3 % (11.5-14.5); White Blood Count 10.5 K/mm3 (4.5-10.0)
[2022-01-20 09:01] LABS: Alveolar/Arterial O2 Gradient 22.1 mmHg; Carboxyhemoglobin 0.8 % THb (0-2.0); Fractional Inspired Oxygen 21 %; HCO3 ABG 26.5 mEq/l (22.0-26.0); Methemoglobin ABG 0.1 %THb (0-1.5); Oxygen Content ABG 18.8 %vol (16.0-22.0); Oxygen Saturation ABG 95.9 % (95.0-100.0); Oxyhemoglobin 94.2 % THb (90.0-100.0); PCO2 ABG 41.2 mmHg (35.0-45.0); PO2 ABG 78.3 mmHg (80.0-100.0); PO2 FiO2 Ratio Arterial Blood 3.73 %; Reduced Hemoglobin 4.9 %THb (0-5.0); Total Hemoglobin 14.2 g/dL (12.0-18.0); pH ABG 7.427 (7.350-7.450)
[2022-01-20 09:02] LABS: Alanine Aminotransferase 64 U/L (6-50); Alkaline Phosphatase 114 U/L (38-126); Anion Gap 11 mmol/L (8-16); Aspartate Amino Transferase 53 U/L (17-59); Bilirubin,Total 1.2 mg/dL (0.2-1.3); Blood Urea Nitrogen 17 mg/dL (9-20); Carbon Dioxide 27 mmol/L (22-30); Chloride 105 mmol/L (98-107); Estimated CRCL calculation 54 ml/min; Estimated Glomerular Filt Rate 51; Glucose 132 mg/dL (65-110); Potassium 3.7 mmol/L (3.4-5.0); Sodium 143 mmol/L (137-145)
[2022-01-20 09:03] LABS: Device ROOM AIR; Modified Allen's Test Pass; Site Drawn LEFT RADIAL
--- NOTE | 2022-01-20 10:11 | ED.SOB ---
HPI - SOB/Dyspnea General Chief Complaint: Shortness of Breath/Dyspnea Stated Complaint: diff breathing Time Seen by Provider: 01/20/22 09:02 History of Present Illness HPI Narrative: 61-year-old male history of hypertension presents to the emergency room for evaluation of shortness of breath. Patient admits to having intermittent shortness of breath for the last 3 weeks, stating it got worse this morning. Patient denies any chest pain. Admits to the inability to take a deep satisfying breath. Patient also admits to noncompliance with his blood pressure medicine, carvedilol and lisinopril, stating he has not taken those in months. Denies tobacco or recreational drug use. Related Data Home Medications Medication Instructions Recorded Confirmed carvedilol 6.25 mg tablet 6.25 mg PO BID 01/08/20 01/09/20 lisinopril 10 1 tablet PO BID 01/08/20 01/09/20 mg-hydrochlorothiazide 12.5 mg tablet Allergies Allergy/AdvReac Type Severity Reaction Status Date / Time No Known Allergies Allergy Uncoded 03/23/19 10:35 Review of Systems Review of Systems: CONSTITUTIONAL: Denies fever, chills, or sweats. EYES: Denies visual changes, redness, or discharge. ENT: Denies rhinorrhea, congestion, sore throat, or otalgia. CARDIOVASCULAR: Denies chest pain, palpitations, or edema. RESPIRATORY: Reports nonproductive cough and dyspnea GASTROINTESTINAL: Denies abdominal pain, nausea, vomiting, or diarrhea. GENITOURINARY: Denies dysuria or hematuria. SKIN: Denies rash or itching. MUSCULOSKELETAL: Denies back pain, joint pain, or myalgia. NEUROLOGIC: Denies headache, numbness, dizziness, or weakness. PSYCHIATRIC: Denies anxiety or depression. COUNT INCLUDES THE [facility] Past Medical History Medical History Acute CVA (cerebrovascular accident) Hypertension Left-sided weakness Obesity PVCs (premature ventricular contractions) Surgical History Surgical History H/O umbilical hernia repair Family History Family History Mother Medical history unknown Other Unknown family medical history Social History Social History Social History: patient does not smoke, never smoked cigarettes, no marijuana or drugs. Would like to be a full code. If he is unable to make decisions for him he wants no one to be his surrogate decision maker and ' god will make all the decisions'. he understands he can designate anyone at any time. He is not working at this time and not on disability. Smoking status: Never smoker Alcohol intake: unknown Substance use: never Substance use type: does not use Spiritual care concerns: No Exam Narrative: GENERAL: Well-appearing, well-nourished, no physical limitations, and in mild respiratory acute distress. HEAD: Normocephalic, atraumatic. EYES: Conjunctivae normal, PERRLA and EOMI. CHEST: Clear to auscultation. Tachypneic. No wheezes rales or rhonchi. No tenderness. HEART: Tachycardic and regular rhythm. No murmur heard. Normal peripheral pulses EXTREMITIES: Normal range of motion. No edema. No clubbing or cyanosis SKIN: Warm, dry, no rash. No noted wounds NEURO: No focal deficits. Alert and oriented x3. MAEW. CN's II-XI intact bilaterally, normal gait PSYCH: Cooperative. Normal mood and affect. Anxious Course Vital Signs Vital signs: Vital Signs Temperature 36.2 C L 01/20/22 08:28 Pulse Rate 108 H 01/20/22 08:28 Respiratory Rate 32 H 01/20/22 08:28 Blood Pressure 185/127 H 01/20/22 08:28 Pulse Oximetry 98 01/20/22 08:28 Oxygen Delivery Room Air 01/20/22 08:28 Temperature 36.2 C L 01/20/22 08:28 Pulse Rate 70 01/20/22 11:18 Respiratory Rate 26 H 01/20/22 11:18 Blood Pressure 162/117 H 01/20/22 11:18 Pulse Oximetry 100 01/20/22 11:18 Oxygen Delivery Nasal Can
[2022-01-20] MEDS: METOPROLOL TARTRATE INJ 5 MG/5 ML VIAL IV PUSH (10:35)
[2022-01-20 10:51] LABS: NT Pro B Type Natriuretic Pept 3840 pg/mL (5-100)
[2022-01-20] MEDS: FUROSEMIDE INJ 40 MG/4 ML VIAL IV PUSH ×2 (11:47→17:00)
--- NOTE | 2022-01-20 14:40 | PM.IMHP ---
H&P: HPI History of Present Illness Date/Time: 01/20/22 14:40 Chief Complaint: Shortness of breath Narrative: Patient is a 61 year old male with a past medical history of hypertension who presented to the ED with complaints of shortness of breath. Patient stated that this all started about 3 weeks ago. He stated that he thought he had a PNA and started taking Mucinex, however, had no relief. He stated that today his breathing was much worse, and when he was going to come to the ED that he started to hyperventilate, and he got very nervous so he called an ambulance. He denies having a cough. He also stated that he has not been having any urinary dysfunction. He denies having any abnormal swelling. He did state that his blood pressure has been running 220/140 while just sitting on the couch. He stated that he tried to call his primary, however, he was unsuccessful in getting any help. However, he stated that he was taking the blood pressure medications that were prescribed for him, but it was not showing any improvement with his blood pressure. He stated that even with the medications his diastolic blood pressure remained above 100. He also stated that he was not going to take any cholesterol medications because his labs were fine. He is concerned about medication in general due to not having any insurance. He supposedly has hurt himself at work and has been unable to secure any benefits including disability. He stated that he has been living off of his fpc. He denies having any problems with appetite. He denies any chest pain, shortness of breath, nausea vomiting diarrhea constipation, visual changes, falls, syncope, weakness, or fatigue. Patient is being admitted to the hospitalist service under observation Review of Systems Review of Systems: All systems reviewed & are unremarkable except as noted in HPI and below [facility] Past Medical History Medical History Acute CVA (cerebrovascular accident) Hypertension Left-sided weakness Obesity PVCs (premature ventricular contractions) Surgical History Surgical History H/O umbilical hernia repair Family History Family History Mother Medical history unknown Other Unknown family medical history Social History Social History (Updated 01/20/22 @ 17:07 by BRISEIDA Locke) Social History: patient does not smoke, never smoked cigarettes, no marijuana or drugs. Would like to be a full code. He wants to designate Demetria Rock to be his surrogate. Smoking status: Never smoker Alcohol intake: never Substance use: never Substance use type: does not use Living arrangements: alone Occupation/Education: retired Additional occupation/education comments: [employer] Gender identity (if verbalized by the patient): Male Sexual Orientation (if Verbalized by the Patient): Straight or Heterosexual Spiritual care concerns: No Agree to blood products: Yes Meds Home Medications and Allergies Home Medications Medication Instructions Recorded Confirmed Type No Home Medications 01/20/22 01/20/22 History Allergies Allergy/AdvReac Type Severity Reaction Status Date / Time No Known Allergies Allergy Uncoded 03/23/19 10:35 Vital Signs Vital Signs - 24 hr 01/20/22 08:28 01/20/22 08:30 01/20/22 08:42 Temperature 97.2 F L Pulse Rate 108 H 102 H Respiratory Rate 32 H 26 H Blood Pressure 185/127 H 185/127 H Pulse Oximetry 98 100 97 Oxygen Delivery Room Air Room Air Oxygen Flow Rate 01/20/22 10:01 01/20/22 10:35 01/20/22 10:00 Temperature Pulse Rate 100 100 Respiratory Rate 22 H Blood Pressure 190/124 H Pulse Oximetry 100 90 Oxygen Delivery Room Air Oxygen Flow Rate 01/20/22 10:05 01/20/22 10:47 01/20/22 11:02 Temperature Pul
--- NOTE | 2022-01-20 16:00 | ECHO_ITS ---
Patient Info Name: Juan Alberto Saeed Age: 61 years : 1960 Gender: Male Ht: 66 in Wt: 220 lbs BSA: 2.20 m2 HR: 85 bpm BP: 178 / 129 mmHg Heart Rhythm: Sinus Rhythm Exam Date: 01/20/2022 3:55 PM Exam Location: [facility] Patient Status: Inpatient Admit Date: 01/20/2022 Staff Ordering Physician: Reji Costello APRN Roading Engineer: Pedro Souza RDCS Attending Provider: Klaus Davies MD Exam Type: CA echo doppler color flow Study Info Complete two-dimentional, color flow and Doppler transthoracic echocardiogram is performed with agitated saline and with contrast to opacify the left ventricle and to improve the delineation of the left ventricle endocardial borders. Summary 1. Borderline left ventricular enlargement with moderate concentric hypertrophy. Severe global hypokinesis, ejection fraction 25-30%, with no focal wall motion abnormalities. Diastolic dysfunction is present. 2. Right ventricular chamber dimension is mildly enlarged and hypokinetic. 3. Left atrial chamber dimension is mildly enlarged. 4. There is mild mitral valve regurgitation. 5. Pulmonary pressure could not be evaluated with a study. 6. Normal sinus rhythm. Left Ventricle Left ventricular chamber dimension is normal. Left ventricular systolic function is severely reduced, estimated at 25-30%. There is moderately increased left ventricular wall thickness. Left ventricular septal wall motion is normal. The left ventricular diastolic function is abnormal. Right Ventricle Right ventricular chamber dimension is mildly enlarged and hypokinetic. Right ventricular systolic function is reduced. Left Atria Left atrial chamber dimension is mildly enlarged. Right Atria Right atrial chamber dimension is normal. Aortic Valve The aortic valve is trileaflet. There is moderate aortic valve sclerosis. There is no aortic valve stenosis. There is no aortic valve regurgitation. Pulmonic Valve The pulmonic valve is normal. There is no pulmonic valve stenosis. There is no pulmonic regurgitation. Mitral Valve The mitral valve has calcified annulus. There is no mitral valve stenosis. There is mild mitral valve regurgitation. Tricuspid Valve The tricuspid valve leaflets are normal. There is no significant tricuspid valve stenosis. There is trace tricuspid valve regurgitation. No pulmonary hypertension, estimated pulmonary arterial systolic pressure is Empty. Pericardium/Pleural The pericardium appears normal. There is no pericardial effusion. Inferior Vena Cava Dilated inferior vena cava with >50% collapse upon inspiration consistent with Empty right atrial pressure, Empty. Aorta The aortic root size at the sinus of Valsalva is normal. The prox ascending aorta size is normal. Left Ventricular Outflow Tract Name Value Normal LVOT 2D LVOT Diameter 2.1 cm LVOT Doppler LVOT Peak Gradient 4 mmHg LVOT Mean Gradient 3 mmHg LVOT VTI 15 cm LVOT VTI/AV VTI Ratio 0.8 LVOT Stroke Volume
[2022-01-20] MEDS: PERFLUTREN LIPID MICROSPHERES 1.5 ML VIAL DILUTED TO 10 ML TOTAL VOLUME IV PUSH (16:02)
--- NOTE | 2022-01-20 16:02 | IVDEFINITY ---
Prior to administration of IV Definity the patient was educated on the risks and benefits of the imaging enhancing agent including potential adverse side effects. The patient verbalized understanding. Allergies were verified. No exclusion criteria were identified and at least one of the following inclusion criteria were met: 1) physician request, 2) patient technically difficult to image (per the [place] [employer] guidelines of two or more segments not discernable within the apical view), or 3) questionable left ventricular function. ?
[2022-01-20] MEDS: lisinopriL 10 MG TABLET PO (17:00)
[2022-01-20] MEDS: hydroCHLOROthiazide 12.5 MG CAPSULE PO (17:00)
[2022-01-20] MEDS: hydrALAZINE HCL 20 MG/ML VIAL 10 MG IV PUSH (17:06)
[2022-01-20] MEDS: FUROSEMIDE INJ 40 MG/4 ML VIAL (17:40)
[2022-01-20 17:47] LABS: Alveolar/Arterial O2 Gradient 231.5 mmHg; Base Excess ABG -2.2 mEq/l (+/-2.0); Fractional Inspired Oxygen 100 %; Oxygen Content ABG 22.2 %vol (16.0-22.0); Oxygen Saturation ABG 99.9 % (95.0-100.0); Oxyhemoglobin 98.5 % THb (90.0-100.0); PCO2 ABG 31.8 mmHg (35.0-45.0); PO2 ABG 449.7 mmHg (80.0-100.0); Total Hemoglobin 15.2 g/dL (12.0-18.0); pH ABG 7.437 (7.350-7.450)
[2022-01-20 17:48] LABS: Device NON-INVASIVE VENT; Modified Allen's Test Pass; Non-Invasive Expiratory Pressure 10 CMH2O; Non-Invasive Inspiratory Pressure 12 CMH2O; Non-Invasive Vent Rate 16 /MIN; Site Drawn RIGHT RADIAL
--- NOTE | 2022-01-20 17:51 | ADMGEN ---
This patient, Juan Alberto Saeed, was admitted to [facility] Surg Room 251-01 [id number]. Patient/family oriented to hospital policies and general routines including ID bracelet, bed and alarms, visiting hours, pain management, procedures, bathroom and other care routines, personal items, smoking policy, room service/diet, and visiting hours. Information on how to activate the Rapid Response Team has been discussed. Patient/Family are encouraged to report perceived risks to care and to ask questions if they do not understand what they are told or what they should do.
[2022-01-20 17:54] LABS: Glucose Point of Care 124 mg/dl (65-105)
--- NOTE | 2022-01-20 17:57 | ADMGEN ---
This patient, Juan Alberto Saeed, was admitted to 3 [facility] Surg Room 303-01 at 1357. Patient/family oriented to hospital policies and general routines including ID bracelet, bed and alarms, visiting hours, pain management, procedures, bathroom and other care routines, personal items, smoking policy, room service/diet, and visiting hours. Information on how to activate the Rapid Response Team has been discussed. Patient/Family are encouraged to report perceived risks to care and to ask questions if they do not understand what they are told or what they should do.
--- NOTE | 2022-01-20 18:18 | PC.NURSE ---
patient yelling for help stating that he couldn't breathe. patient resp rate 44. patient dusky in color, diaphoretic and in distress. rapid response called. patient placed on bipap, abgs obtained and iv lasix given. patient to transfer to IMU abg results back and patient co2 31.[address] Mcmullen given results. bipap removed and placed on nasal cannula. orders received to keep o2>90%. Dr. Mcmullen came back to look at patient and cancelled transfer at this time. patient on 2.5 L nasal cannula running 99% at this time.
--- NOTE | 2022-01-20 18:55 | PC.NURSE ---
Dr. Mcmullen called to check on patient. Patient agreeable to try bipap again overnight. resp rate 36-40. patient states feeling better and diuresing well with lasix. still on 2 L at this time. patient on tele running NSR with trigemity. Dr. Mcmullen would like to have patient transfer to IMU for closer monitoring overnight and to see how patient tolerates bipap. [facility] Room Tapper notified and will give bed for transfer.
[2022-01-20] MEDS: carvediloL 6.25 MG TABLET PO (20:21)
[2022-01-21] VITALS (17 sets, daily range): BP systolic 101–143; BP diastolic 69–93; PULSE 60–81; RESP 16–20; TEMP 36.3–36.8; O2SAT 95–100
[2022-01-21 04:57] LABS: Basophils Absolute Auto 0.1 K/mm3 (0.0-0.1); Basophils Percent Auto 0.7 % (0.2-1.2); Eosinophils Absolute Auto 0.2 K/mm3 (0-0.3); Eosinophils Percent Auto 2.3 % (0-4.4); Hematocrit 39.8 % (42.0-52.0); Hemoglobin 12.9 g/dL (14.0-18.0); Immature Granulocyte Absolute 0.03 K/mm3 (0.00-0.031); Immature Granulocyte Percent A 0.4 % (0-0.5); Lymphocytes Absolute Auto 1.21 K/mm3 (0.9-3.2); Lymphocytes Percent Auto 15.8 % (18.3-44.2); Mean Corpuscular HGB Conc 32.4 g/dl (32-36); Mean Corpuscular Hemoglobin 29.4 pg (26-34); Mean Corpuscular Volume 90.7 fl (80-100); Mean Platelet Volume 10.6 fl (7.4-10.4); Monocytes Absolute Auto 0.7 K/mm3 (0.1-0.6); Monocytes Percent Auto 8.7 % (2.6-8.5); Neutrophils Absolute Auto 5.5 K/mm3 (1.3-6.7); Neutrophils Percent Auto 72.1 % (45.5-73.1); Platelet Count Result 297 k/mm3 (150-375); Red Blood Count 4.39 M/mm3 (4.6-6.20); Red Cell Distribution Width 15.3 % (11.5-14.5); White Blood Count 7.7 K/mm3 (4.5-10.0)
--- NOTE | 2022-01-21 05:14 | PCRCNOTE ---
RT tried BIPAP with pt on 01/20 PM. Immediately, pt complained that the pressures were too high and that it was gagging him. When explained that he is at one of the lowest potential settings for a BIPAP and that it may be uncomfortable at first and to give it a try, the pt became belligerent with the RT. RT removed herself and spoke with the RN about pt keeping the BIPAP on. As reported by the RN to the RT, the pt stated that he can not handle the pressures and removed the BIPAP at 2230. RN placed pt on 2L NC where he is resting at 95%.
[2022-01-21 05:16] LABS: Alanine Aminotransferase 50 U/L (6-50); Albumin Level 3.8 g/dL (3.5-5.1); Alkaline Phosphatase 97 U/L (38-126); Anion Gap 2 mmol/L (8-16); Aspartate Amino Transferase 34 U/L (17-59); Bilirubin,Total 1.3 mg/dL (0.2-1.3); Blood Urea Nitrogen 21 mg/dL (9-20); Calcium 8.4 mg/dL (8.4-10.2); Carbon Dioxide 32 mmol/L (22-30); Chloride 101 mmol/L (98-107); Cholesterol 148 mg/dL (0-200); Estimated CRCL calculation 45 ml/min; Estimated Glomerular Filt Rate 41; Glucose 107 mg/dL (65-110); HDL Direct 44 mg/dL; Magnesium 1.9 mg/dL (1.6-2.3); Potassium 3.2 mmol/L (3.4-5.0); Sodium 135 mmol/L (137-145); Triglycerides 62 mg/dL (<150)
[2022-01-21 05:26] LABS: LDL Cholesterol Direct 80 mg/dL
[2022-01-21 05:28] LABS: Hemoglobin A1C 5.3 % (<5.7)
[2022-01-21] MEDS: POTASSIUM CHLORIDE 20 MEQ TABLET 40 MEQ PO (06:50)
--- NOTE | 2022-01-21 07:39 | P.PNIM_ITS ---
Progress Note: A&P Assessment and Plan (1) Acute respiratory failure: Code(s): J96.00 - Acute respiratory failure, unspecified whether with hypoxia or hypercapnia Status: Acute Assessment and Plan: * Increased work of breathing, unable to communicate, tripoding with accessory muscle use * BIPAP ordered * ABG with bipap 7.437, CO2 31.8, O2 449.7, HCO3 21, Sat 99.9 * Probably related to fluid overload, CHF * Currently on 2LNC * Continue to trend saturation * Wean oxygen as indicated * Thoracentesis performed with 300ml off (2) CHF (congestive heart failure): Code(s): I50.9 - Heart failure, unspecified Status: Acute Assessment and Plan: * 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 * BNP elevated at 3840 * Chest xray shows mild pulm edema * CTA of the chest shows No PE, scattered patchy groundglass and focal infiltrates, consider PNA or Pulm Edema, moderate right and mild left pleural effusion * Lasix 40mg IV BID * Echo shows an EF of 25-30% with diastolic dysfunction, right vent enlarged and hypokenetic * Cardiology consult for potential need of life vest * Thoracentesis with 300ml off and better breathing * Trend urine output * Daily weights * Adjust therapy as indicated * Accurate I&O (3) Acute on chronic kidney failure: Code(s): N17.9 - Acute kidney failure, unspecified; N18.9 - Chronic kidney disease, unspecified Status: Acute Assessment and Plan: * BUN/Cr 21/1.70 * Seems to be at baseline 1.30 * Trend labs * Chronic disease related to uncontrolled BP, acute failure could be contributed to lasix * Avoid nephrotoxic medications (4) Hypertension: Qualifiers: Hypertension type: unspecified Qualified Code(s): I10 - Essential (primary) hypertension Code(s): I10 - Essential (primary) hypertension Status: Acute Assessment and Plan: * BP is 125/82 * Restart carvedilol 6.25, lisinopril 10mg and HCTZ 12.5mg * Trend BP * Hydrazine 10mg IV * Adjust therapy as indicated * Better with diuresis and post thoracentesis (5) Pleural effusion: Code(s): J90 - Pleural effusion, not elsewhere classified Status: Acute Assessment and Plan: * Pleural effusion moderate right mild left * thoracentesis 300ml off * Trend output * chest xray atelectasis, pleural effusions, cardiomegaly * Trend the xrays * Improvement with breathing and oxygenation (6) Dyslipidemia: Code(s): E78.5 - Hyperlipidemia, unspecified Status: Acute Assessment and Plan: * Lipid panel triglyceride 62, cholesterol 148, LDL 80, HDL 44 * Atorvastatin 20mg PO Daily * Adjust therapy as indicated * Stated he will not take statin since his labs are normal Time Spent With Patient Time with patient: Greater than 35 minutes Subjective Date/time seen: 01/21/22 07:39 Interval history: 01/21/2240 Patient was lying in bed he looks completely exhausted. He stated that he is very tired he did sleep however he stated he did sleep very long. He states he is not short of breath however his work of breathing is still elevated. He de nies any chest pain. He does have pain with deep inspiration and inability flat. He did state that he is urinating a lot however it has slowed down. It appears yesterday evening patient was noted to have an increased
--- NOTE | 2022-01-21 07:39 | PM.IMPN ---
Progress Note: A&P Assessment and Plan (1) Acute respiratory failure: Code(s): J96.00 - Acute respiratory failure, unspecified whether with hypoxia or hypercapnia Status: Acute Assessment and Plan: Increased work of breathing, unable to communicate, tripoding with accessory muscle use BIPAP ordered ABG with bipap 7.437, CO2 31.8, O2 449.7, HCO3 21, Sat 99.9 Probably related to fluid overload, CHF Currently on 2LNC Continue to trend saturation Wean oxygen as indicated Thoracentesis performed with 300ml off (2) CHF (congestive heart failure): Code(s): I50.9 - Heart failure, unspecified Status: Acute Assessment and Plan: 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 BNP elevated at 3840 Chest xray shows mild pulm edema CTA of the chest shows No PE, scattered patchy groundglass and focal infiltrates, consider PNA or Pulm Edema, moderate right and mild left pleural effusion Lasix 40mg IV BID Echo shows an EF of 25-30% with diastolic dysfunction, right vent enlarged and hypokenetic Cardiology consult for potential need of life vest Thoracentesis with 300ml off and better breathing Trend urine output Daily weights Adjust therapy as indicated Accurate I&O (3) Acute on chronic kidney failure: Code(s): N17.9 - Acute kidney failure, unspecified; N18.9 - Chronic kidney disease, unspecified Status: Acute Assessment and Plan: BUN/Cr 21/1.70 Seems to be at baseline 1.30 Trend labs Chronic disease related to uncontrolled BP, acute failure could be contributed to lasix Avoid nephrotoxic medications (4) Hypertension: Qualifiers: Hypertension type: unspecified Qualified Code(s): I10 - Essential (primary) hypertension Code(s): I10 - Essential (primary) hypertension Status: Acute Assessment and Plan: BP is 125/82 Restart carvedilol 6.25, lisinopril 10mg and HCTZ 12.5mg Trend BP Hydrazine 10mg IV Adjust therapy as indicated Better with diuresis and post thoracentesis (5) Pleural effusion: Code(s): J90 - Pleural effusion, not elsewhere classified Status: Acute Assessment and Plan: Pleural effusion moderate right mild left thoracentesis 300ml off Trend output chest xray atelectasis, pleural effusions, cardiomegaly Trend the xrays Improvement with breathing and oxygenation (6) Dyslipidemia: Code(s): E78.5 - Hyperlipidemia, unspecified Status: Acute Assessment and Plan: Lipid panel triglyceride 62, cholesterol 148, LDL 80, HDL 44 Atorvastatin 20mg PO Daily Adjust therapy as indicated Stated he will not take statin since his labs are normal Time Spent With Patient Time with patient: Greater than 35 minutes Subjective Date/time seen: 01/21/22 07:39 Interval history: 01/21/22 0740 Patient was lying in bed he looks completely exhausted. He stated that he is very tired he did sleep however he stated he did sleep very long. He states he is not short of breath however his work of breathing is still elevated. He denies any chest pain. He does have pain with deep inspiration and inability flat. He did state that he is urinating a lot however it has slowed down. It appears yesterday evening patient was noted to have an increased shortness of breath with increased work of breathing, unable to complete sentences, and had to be transferred to IMU and placed on Bipap. Went to re-evaluate the patient and he stated that he is feeling better. he has been able to take a deep breath. He seems to be doing well. He is currently on 2L and sating 95-99%. He is talking better and is able to complete sentences. I feel that the patient should be able to be downgraded. 01/20/22? 14:40 Patient is a 61 year old male with a past medical history of hypertension who presented to the ED with comp
[2022-01-21 07:53] LABS: Amylase 58 U/L (30-110); Lactate Dehydrogenase 160 U/L (120-246)
[2022-01-21 07:55] LABS: INR 1.2; Prothrombin Time 14.3 Seconds (11.1-14.7)
--- NOTE | 2022-01-21 09:02 | PM.CNCAR ---
Assessment and Plan Assessment and plan (1) Acute systolic CHF (congestive heart failure): Code(s): I50.21 - Acute systolic (congestive) heart failure Status: Acute Assessment and Plan: Patient presents with new onset of CHF Likely due to hypertensive heart disease Cardiomyopathy, EF 25-30% Has some chest discomfort prior to admission, will need some type of ischemia evaluation. Discussed a Lexiscan stress test with the patient which I will order for tomorrow. Improving with current therapy Hypokalemic this morning, will supplement potassium BMP Add spironolactone Counseled patient extensively about hypertension, cardiomyopathy, heart failure, and treatment which is primarily medications. Patient has previously expressed that he does not like to take medications. I am concerned about his long-term compliance. (2) Cardiomyopathy: Code(s): I42.9 - Cardiomyopathy, unspecified Status: Acute Assessment and Plan: New cardiomyopathy, EF 25-30% (3) Hypertensive heart disease: Code(s): I11.9 - Hypertensive heart disease without heart failure Status: Acute Assessment and Plan: Severe uncontrolled hypertension with hypertensive heart disease Counseled patient about hypertension. Blood pressure is improving. (4) CKD (chronic kidney disease) stage 3, GFR 30-59 ml/min: Code(s): N18.30 - Chronic kidney disease, stage 3 unspecified Status: Acute Assessment and Plan: Has had some degree of chronic kidney disease since 2020 Likely related to hypertension Daily BMP while diuresing (5) Uninsured: Code(s): Z59.89 - Other problems related to housing and economic circumstances Status: Acute Assessment and Plan: I believe the patient is uninsured and it has been difficult for the patient to have ongoing medical care and follow-up. Will need to use generic medications (rather than some of the newer guideline recommended medicines such as Entresto and Farxiga) for his heart failure, unless he can get some insurance Will ask the social group worker to see if he can get medicated cetera. (6) H/O: stroke: Code(s): Z86.73 - Personal history of transient ischemic attack (TIA), and cerebral infarction without residual deficits Status: Acute Assessment and Plan: Multiple strokes in 2020 Recommend resumption of aspirin and statin therapy. Plan I spent 65 minutes evaluating pt and chart, extensive time counseling pt who needed extra attention and discussion regarding his concerns and documenting my services. History of Present Illness History of Present Illness Consult date/time: 01/21/22 09:02 Requesting physician: Juan F Chandra APN-C Reason For Visit: CHF Narrative: Juan Alberto Saeed is a 61-year-old male whom we were asked to see at the request of TONIO Chandra for our advice and opinion regarding his CHF, in consultation. The patient has history of hypertension. He was admitted in 2019 with acute multiple strokes, and some old lacunar infarcts A LINDA did not show any cardiac source of emboli, and he had normal left ventricular function of the time. Carotids did not have significant disease. He was discharged on aspirin, atorvastatin, carvedilol, and lisinopril HCTZ. On that admission he indicated that he was distrustful of doctors and did not like to take medications. Apparently after that his blood pressure remained elevated, he fell his medications were not working, and had trouble getting medical care, so stopped all medications. The patient came to the emergency room complaining of shortness of breath the last 3 weeks. At home his blood pressure was running 210/140 mmHg. He had a cough, PND and orthopnea but no edema. He had chest tightness like a bear hug around his chest. Blood pressure in the ER was 185/127 mmHg. He has been started on carvedilol, lisinopril, HCTZ, and furosemide 40 mg IV push b.i.d. a
[2022-01-21] MEDS: FUROSEMIDE INJ 40 MG/4 ML VIAL IV PUSH ×2 (10:03→17:32)
[2022-01-21] MEDS: carvediloL 6.25 MG TABLET PO ×2 (10:03→22:39)
--- NOTE | 2022-01-21 10:49 | P.CDI_ITS ---
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 01/21 Cardiologis documented: Assessment and plan (1) Acute systolic CHF (congestive heart failure): ?Code(s): I50.21 - Acute systolic (congestive) heart failure ?Status:?Acute ?Assessment and Plan: Patient presents with new onset of CHF Please clarify if diagnosis, congestive heart failure is: -Diastolic -Systolic -Combined -Unable to determine <BRISEIDA Locke - Last Filed: 01/21/22 16:36> Clarified Diagnosis (1) CHF (congestive heart failure): Code(s): I50.9 - Heart failure, unspecified <Michelle Aarmis Therese - Last Filed: 01/21/22 10:55> Status: Acute <Michelleantoni Saleh - Last Filed: 01/21/22 10:55> Assessment and Plan: This problem is documented as 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 <BRISEIDA Locke - Last Filed: 01/21/22 16:36>
[2022-01-21] MEDS: lisinopriL 10 MG TABLET PO (13:00)
[2022-01-21] MEDS: hydroCHLOROthiazide 12.5 MG CAPSULE PO (13:00)
[2022-01-21 13:41] LABS: Appearance Pleural Fluid Cloudy (Clear); Pleural fluid source Pleural fluid
[2022-01-21 13:42] LABS: Color Pleural Fluid Red (Colorless); Lymphocytes Pleural Fluid 44 %; Macrophages Pleural Fluid 3 %; Monocytes Pleural Fluid 12 %; Neutrophils Pleural Fluid 7 % (0-25); Nucleated Cell Pleural Fluid 563 /uL (0-1000); RBC Pleural Fluid 12798 /uL (0-0)
[2022-01-21 13:43] LABS: Mesothelial Cells Pleural Flui 34 %
--- NOTE | 2022-01-21 17:56 | PC.NURSE ---
Orders to transfer to med/tele- pt transferred to med/tele room 322 via bed accompanied by staff- O2 on 2l/nc spo2 @ 99%- report was given to Roz Rodriguez RN - belongings sent with pt
[2022-01-22] VITALS (12 sets, daily range): BP systolic 127–147; BP diastolic 74–94; PULSE 50–70; RESP 14–163; TEMP 35.7–36.4; O2SAT 95–100
[2022-01-22 06:14] LABS: Basophils Absolute Auto 0.1 K/mm3 (0.0-0.1); Basophils Percent Auto 0.8 % (0.2-1.2); Eosinophils Absolute Auto 0.4 K/mm3 (0-0.3); Eosinophils Percent Auto 4.9 % (0-4.4); Hematocrit 39.9 % (42.0-52.0); Hemoglobin 12.7 g/dL (14.0-18.0); Immature Granulocyte Absolute 0.03 K/mm3 (0.00-0.031); Immature Granulocyte Percent A 0.4 % (0-0.5); Lymphocytes Absolute Auto 1.39 K/mm3 (0.9-3.2); Lymphocytes Percent Auto 19.6 % (18.3-44.2); Mean Corpuscular HGB Conc 31.8 g/dl (32-36); Mean Corpuscular Hemoglobin 28.7 pg (26-34); Mean Corpuscular Volume 90.1 fl (80-100); Mean Platelet Volume 10.3 fl (7.4-10.4); Monocytes Absolute Auto 0.6 K/mm3 (0.1-0.6); Monocytes Percent Auto 8.9 % (2.6-8.5); Neutrophils Absolute Auto 4.6 K/mm3 (1.3-6.7); Neutrophils Percent Auto 65.4 % (45.5-73.1); Platelet Count Result 303 k/mm3 (150-375); Red Blood Count 4.43 M/mm3 (4.6-6.20); Red Cell Distribution Width 15.1 % (11.5-14.5); White Blood Count 7.1 K/mm3 (4.5-10.0)
[2022-01-22 06:38] LABS: Alanine Aminotransferase 40 U/L (6-50); Albumin Level 3.6 g/dL (3.5-5.1); Alkaline Phosphatase 99 U/L (38-126); Anion Gap 5 mmol/L (8-16); Aspartate Amino Transferase 29 U/L (17-59); Bilirubin,Total 1.1 mg/dL (0.2-1.3); Blood Urea Nitrogen 32 mg/dL (9-20); Calcium 8.4 mg/dL (8.4-10.2); Carbon Dioxide 29 mmol/L (22-30); Chloride 99 mmol/L (98-107); Estimated CRCL calculation 36 ml/min; Estimated Glomerular Filt Rate 32; Glucose 107 mg/dL (65-110); Magnesium 1.9 mg/dL (1.6-2.3); Potassium 3.4 mmol/L (3.4-5.0); Sodium 133 mmol/L (137-145)
--- NOTE | 2022-01-22 09:16 | PM.PNCARD ---
Progress Note: A&P Assessment and Plan (1) Acute systolic CHF (congestive heart failure): Code(s): I50.21 - Acute systolic (congestive) heart failure Status: Acute Assessment and Plan: Patient presents with new onset of CHF Likely due to hypertensive heart disease Cardiomyopathy, EF 25-30% Underwent lexiscan stress test this morning. Will provide further recommendations when results are available. Improving with current therapy Daily BMP. Creatinine 2.1 today from 1.7. Will d/c IV furosemide and shift him to p.o. CHF counseling (2) Cardiomyopathy: Code(s): I42.9 - Cardiomyopathy, unspecified Status: Acute Assessment and Plan: New cardiomyopathy, EF 25-30% (3) Hypertensive heart disease: Code(s): I11.9 - Hypertensive heart disease without heart failure Status: Acute Assessment and Plan: Severe uncontrolled hypertension with hypertensive heart disease Counseled patient about hypertension. Blood pressure is improving. (4) CKD (chronic kidney disease) stage 3, GFR 30-59 ml/min: Code(s): N18.30 - Chronic kidney disease, stage 3 unspecified Status: Acute Assessment and Plan: Has had some degree of chronic kidney disease since 2020 Likely related to hypertension Daily BMP while diuresing (5) Uninsured: Code(s): Z59.89 - Other problems related to housing and economic circumstances Status: Acute Assessment and Plan: I believe the patient is uninsured and it has been difficult for the patient to have ongoing medical care and follow-up. Will need to use generic medications (rather than some of the newer guideline recommended medicines such as Entresto and Farxiga) for his heart failure, unless he can get some insurance (6) H/O: stroke: Code(s): Z86.73 - Personal history of transient ischemic attack (TIA), and cerebral infarction without residual deficits Status: Acute Assessment and Plan: Multiple strokes in 2020 Recommend resumption of aspirin and statin therapy. Subjective Date/time seen: 01/22/22 09:16 Cardiology follow up for cardiomyopathy, CHF Interval history: Feeling much better today. His breathing has improved significantly. S/p thoracentesis yesterday with 300mL fluid removed. No swelling. Review of Systems Constitutional: Constitutional: Denies fever(s) Eyes: Eyes: Reports no additional eye complaints ENT: Denies epistaxis Cardiovascular: Cardiovascular: Reports chest pain, Denies pedal edema, Denies leg edema, Denies lightheadedness, Reports dyspnea and Reports dyspnea on exertion Respiratory: Respiratory: Reports chest congestion, Reports cough, Reports dyspnea and Reports dyspnea on exertion Gastrointestinal: Gastrointestinal: Denies abdominal pain and Denies hematochezia Genitourinary: Genitourinary: Denies hematuria and Denies dysuria Musculoskeletal: Musculoskeletal: Reports arthralgias (Believes he had gout involving his left ankle) Integumentary/Breasts: Skin/Breast: Reports system reviewed and no additional complaints, except as docu Neurologic: Reports system reviewed and no additional complaints, except as documented, Denies behavioral changes and Denies confusion Psychiatric: Psychiatric: Denies behavioral changes and Denies confusion Exam Const: General: cooperative, healthy appearing and comfortable; No confusion Orientation/consciousness: oriented to person, patient oriented x3 and No confusion HENMT: Mouth: Yes moist mucous membranes Eyes: EOM: EOMs intact bilaterally Neck: Neck: supple and no JVD Thyroid: thyroid normal Carotids: no bruits Resp: Effort & Inspection: normal respiratory effort Auscultation: rales (few rales LLL, mildly diminished BS RLL) Cardio: Rate: regular rate Rhythm: regular rhythm Heart sounds: no murmurs GI: Inspection: normal to inspection Skin: General skin exam: normal color and no rashes or lesions note
--- NOTE | 2022-01-22 10:39 | EST_ITS ---
Patient Info Name: Juan Alberto Saeed Age: 61 years : 1960 Gender: Male Ht: 66 in Wt: 214 lbs BSA: 2.16 m2 Exam Date: 01/22/2022 8:42 AM Exam Location: [facility] Stress Patient Status: Inpatient Admit Date: 01/21/2022 Staff Ordering Physician: Ivonne Garrison MD Attending Provider: Nina Rowe Exercise Technologist: Sia Logan RDCS Nurse: ELIZABETH CREWS NP Exam Type: CA stress mukesh w NM Study Info Indications - CHF R07.9 - Chest pain, unspecified A regadenoson stress test was performed. Summary 1. No abnormal ST-T wave changes with lexiscan. 2. Nuclear test results to follow. Protocol: Lexiscan Stress ECG Details Stage: REST Duration (min): 1 min : 31 sec HR (bpm): 60 SBP (mmHg): 131 DBP (mmHg): 94 Stage: REST Duration (min): 1 min : 51 sec HR (bpm): 57 SBP (mmHg): 131 DBP (mmHg): 94 Stage: REST Duration (min): 7 min : 48 sec HR (bpm): 63 SBP (mmHg): 131 DBP (mmHg): 94 Stage: STAGE 1 Duration (min): 1 min : 0 sec HR (bpm): 65 SBP (mmHg): 131 DBP (mmHg): 94 Stage: RECOVERY Duration (min): 1 min : 0 sec HR (bpm): 85 SBP (mmHg): 130 DBP (mmHg): 91 Stage: RECOVERY Duration (min): 2 min : 0 sec HR (bpm): 78 SBP (mmHg): 115 DBP (mmHg): 88 Stage: RECOVERY Duration (min): 3 min : 0 sec HR (bpm): 70 SBP (mmHg): 136 DBP (mmHg): 93 Stage: RECOVERY Duration (min): 3 min : 3 sec HR (bpm): 69 SBP (mmHg): 136 DBP (mmHg): 93 Rest HR: 63 bpm Peak HR: 85 bpm Rest Sys BP: 131 mmHg Peak Sys BP: 136 mmHg Max Pred HR: 157 bpm % Max Pred HR: 54 % Target HR: 133 bpm Max RPP: 11,560 bpm*mmHg BP Response: Normal blood pressure response Termination Reason: Completed protocol Cardiac Symptoms: None Total Time: 1 min : 0 sec Rest Clement BP: 94 mmHg Peak Clement BP: 93 mmHg Total Dose: 0.4 mg Resting ECG Normal sinus rhythm. Resting ST/T wave changes. Stress ECG No abnormal ST/T wave changes with test. Arrhythmias Occasional PVCs. Report Signatures
[2022-01-22] MEDS: hydroCHLOROthiazide 12.5 MG CAPSULE PO (11:22)
[2022-01-22] MEDS: carvediloL 6.25 MG TABLET PO ×2 (11:22→20:49)
[2022-01-22] MEDS: lisinopriL 10 MG TABLET PO (11:23)
[2022-01-22] MEDS: ENOXAPARIN 40 MG/0.4 ML SYRINGE SUB-Q (11:23)
--- NOTE | 2022-01-22 14:17 | P.PNIM_ITS ---
Progress Note: A&P Assessment and Plan (1) CHF (congestive heart failure): Code(s): I50.9 - Heart failure, unspecified Status: Acute Assessment and Plan: - See Cardiology plan. Plan (1) Acute respiratory failure: ?Code(s): J96.00 - Acute respiratory failure, unspecified whether with hypoxia or hypercapnia ?Status:?Acute ?Assessment and Plan: * Probably related to fluid overload, CHF * Currently on 2LNC * Continue to trend saturation * Wean oxygen as indicated * Thoracentesis performed with 300ml off * Pt, has had improvement in the ability to breathe deeply and feels better overall. He remains on supplemental oxygen. 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 Cardiology covering, and will report the findings of the Lexiscan. * Thoracentesis with 300ml off and better breathing * Trend urine output * Daily weights * Adjust therapy as indicated * Accurate I&O (3) Acute on chronic kidney failure: ?Code(s): N17.9 - Acute kidney failure, unspecified; N18.9 - Chronic kidney disease, unspecified ?Status:?Acute ?Assessment and Plan: * BUN/Cr 21/2.10 * Seems to be at baseline 1.30 * Trend labs * Chronic disease related to uncontrolled BP, acute failure could be contributed to lasix. Lasix IV was discontinued today by cardiology and oral was started. * Avoid nephrotoxic medications (4) Hypertension: ?Qualifiers: ?Hypertension type:?unspecified? Qualified Code(s):?I10 - Essential (primary) hypertension ?Code(s): I10 - Essential (primary) hypertension ?Status:?Acute ?Assessment and Plan: * BP is 125/82 * Restart carvedilol 6.25, lisinopril 10mg and HCTZ 12.5mg * Trend BP * Hydrazine 10mg IV * Adjust therapy as indicated * Better with diuresis and post thoracentesis (5) Pleural effusion: ?Code(s): J90 - Pleural effusion, not elsewhere classified ?Status:?Acute ?Assessment and Plan: * Pleural effusion moderate right mild left * thoracentesis 300ml off * Trend output * chest xray atelectasis, pleural effusions, cardiomegaly * Trend the xrays * Improvement with breathing and oxygenation * CXR ordered to be repeated today. (6) Dyslipidemia: ?Code(s): E78.5 - Hyperlipidemia, unspecified ?Status:?Acute ?Assessment and Plan: * Lipid panel triglyceride 62, cholesterol 148, LDL 80, HDL 44 * Atorvastatin 20mg PO Daily * Adjust therapy as indicated * Stated he will not take statin since his labs are normal Time Spent With Patient Time with patient: 15 - 25 minutes Subjective Date/time seen: 01/22/22 4709 This pt. was examined at the bedside today in interval assessment. He denies any new complaints today and he had a NM Lexiscan today that demonstrated a large area of severe mixed infarct and ischemia involving the left ventricular apex, apical inferior, apical late
--- NOTE | 2022-01-22 14:17 | PM.IMPN ---
Progress Note: A&P Assessment and Plan (1) CHF (congestive heart failure): Code(s): I50.9 - Heart failure, unspecified Status: Acute Assessment and Plan: - See Cardiology plan. Plan (1) Acute respiratory failure: ?Code(s): J96.00 - Acute respiratory failure, unspecified whether with hypoxia or hypercapnia ?Status:?Acute ?Assessment and Plan: Probably related to fluid overload, CHF Currently on 2LNC Continue to trend saturation Wean oxygen as indicated Thoracentesis performed with 300ml off Pt, has had improvement in the ability to breathe deeply and feels better overall. He remains on supplemental oxygen. 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 Cardiology covering, and will report the findings of the Lexiscan. Thoracentesis with 300ml off and better breathing Trend urine output Daily weights Adjust therapy as indicated Accurate I&O (3) Acute on chronic kidney failure: ?Code(s): N17.9 - Acute kidney failure, unspecified; N18.9 - Chronic kidney disease, unspecified ?Status:?Acute ?Assessment and Plan: BUN/Cr 21/2.10 Seems to be at baseline 1.30 Trend labs Chronic disease related to uncontrolled BP, acute failure could be contributed to lasix. Lasix IV was discontinued today by cardiology and oral was started. Avoid nephrotoxic medications (4) Hypertension: ?Qualifiers: ?Hypertension type:?unspecified? Qualified Code(s):?I10 - Essential (primary) hypertension ?Code(s): I10 - Essential (primary) hypertension ?Status:?Acute ?Assessment and Plan: BP is 125/82 Restart carvedilol 6.25, lisinopril 10mg and HCTZ 12.5mg Trend BP Hydrazine 10mg IV Adjust therapy as indicated Better with diuresis and post thoracentesis (5) Pleural effusion: ?Code(s): J90 - Pleural effusion, not elsewhere classified ?Status:?Acute ?Assessment and Plan: Pleural effusion moderate right mild left thoracentesis 300ml off Trend output chest xray atelectasis, pleural effusions, cardiomegaly Trend the xrays Improvement with breathing and oxygenation CXR ordered to be repeated today. (6) Dyslipidemia: ?Code(s): E78.5 - Hyperlipidemia, unspecified ?Status:?Acute ?Assessment and Plan: Lipid panel triglyceride 62, cholesterol 148, LDL 80, HDL 44 Atorvastatin 20mg PO Daily Adjust therapy as indicated Stated he will not take statin since his labs are normal Time Spent With Patient Time with patient: 15 - 25 minutes Subjective Date/time seen: 01/22/22 6712 This pt. was examined at the bedside today in interval assessment. He denies any new complaints today and he had a NM Lexiscan today that demonstrated a large area of severe mixed infarct and ischemia involving the left ventricular apex, apical inferior, apical lateral, and mid inferolateral segments, and mid anterolateral segments of the left ventricle, consistent with mixed infarct and ischemia. There is global hypokinesis, and the LVEF is 38%. Pt. was visited at the bedside and was difficult to talk to. He will need to see multiple specialists in follow up including Cardiology and PCP, but he speaks only of the ones he has fired. Including, Dr. Moore in [place], Dr. Cancino in [place] and Dr. Simmons (Funeral Service Apprentice) in [place]. He remains on oxygen at this time and he has no complaints of CP
[2022-01-22] MEDS: FUROSEMIDE 40 MG TABLET PO (17:26)
[2022-01-23] VITALS (12 sets, daily range): BP systolic 126–151; BP diastolic 75–95; PULSE 59–78; RESP 16–20; TEMP 36–36.8; O2SAT 97–100
[2022-01-23 06:46] LABS: Basophils Absolute Auto 0.1 K/mm3 (0.0-0.1); Basophils Percent Auto 0.8 % (0.2-1.2); Eosinophils Absolute Auto 0.3 K/mm3 (0-0.3); Eosinophils Percent Auto 3.9 % (0-4.4); Hematocrit 40.3 % (42.0-52.0); Hemoglobin 12.9 g/dL (14.0-18.0); Immature Granulocyte Absolute 0.02 K/mm3 (0.00-0.031); Immature Granulocyte Percent A 0.3 % (0-0.5); Lymphocytes Absolute Auto 1.29 K/mm3 (0.9-3.2); Mean Corpuscular Hemoglobin 28.9 pg (26-34); Mean Corpuscular Volume 90.4 fl (80-100); Mean Platelet Volume 10.5 fl (7.4-10.4); Monocytes Absolute Auto 0.7 K/mm3 (0.1-0.6); Monocytes Percent Auto 9.2 % (2.6-8.5); Neutrophils Absolute Auto 5.2 K/mm3 (1.3-6.7); Neutrophils Percent Auto 68.8 % (45.5-73.1); Platelet Count Result 302 k/mm3 (150-375); Red Blood Count 4.46 M/mm3 (4.6-6.20); Red Cell Distribution Width 14.9 % (11.5-14.5); White Blood Count 7.6 K/mm3 (4.5-10.0)
[2022-01-23 07:04] LABS: Alanine Aminotransferase 30 U/L (6-50); Albumin Level 3.6 g/dL (3.5-5.1); Alkaline Phosphatase 101 U/L (38-126); Anion Gap 11 mmol/L (8-16); Aspartate Amino Transferase 23 U/L (17-59); Bilirubin,Total 0.8 mg/dL (0.2-1.3); Blood Urea Nitrogen 31 mg/dL (9-20); Calcium 8.3 mg/dL (8.4-10.2); Carbon Dioxide 29 mmol/L (22-30); Chloride 98 mmol/L (98-107); Estimated CRCL calculation 45 ml/min; Estimated Glomerular Filt Rate 41; Glucose 110 mg/dL (65-110); Magnesium 1.9 mg/dL (1.6-2.3); Potassium 3.4 mmol/L (3.4-5.0); Sodium 138 mmol/L (137-145)
--- NOTE | 2022-01-23 08:20 | PM.IMPN ---
Progress Note: A&P Assessment and Plan (1) Acute systolic CHF (congestive heart failure): Code(s): I50.21 - Acute systolic (congestive) heart failure Status: Acute Assessment and Plan: Appreciate cardiology consultation Patient will need a LifeVest, Arb, goal of Entresto at some point Continue oral Lasix, when kidney function resolves, will add spironolactone They are recommending coronary angiogram when kidney function resolves (2) Cardiomyopathy: Code(s): I42.9 - Cardiomyopathy, unspecified Status: Acute Assessment and Plan: New cardiomyopathy, EF 25-30% (3) Hypertensive heart disease: Code(s): I11.9 - Hypertensive heart disease without heart failure Status: Acute Assessment and Plan: Severe uncontrolled hypertension with hypertensive heart disease Counseled patient about hypertension. Blood pressure is improving. (4) CKD (chronic kidney disease) stage 3, GFR 30-59 ml/min: Code(s): N18.30 - Chronic kidney disease, stage 3 unspecified Status: Acute Assessment and Plan: Has had some degree of chronic kidney disease since 2019 Likely related to hypertension Daily BMP while diuresing (5) Uninsured: Code(s): Z59.89 - Other problems related to housing and economic circumstances Status: Acute Assessment and Plan: I believe the patient is uninsured and it has been difficult for the patient to have ongoing medical care and follow-up. (6) H/O: stroke: Code(s): Z86.73 - Personal history of transient ischemic attack (TIA), and cerebral infarction without residual deficits Status: Acute Assessment and Plan: Continue aspirin, statin (7) Acute respiratory failure: Code(s): J96.00 - Acute respiratory failure, unspecified whether with hypoxia or hypercapnia Status: Acute Assessment and Plan: Resolved, stable on room air, likely secondary to heart failure Status post thoracentesis with 300 mL removed Plan DVT prophylaxis with Lovenox GI prophylaxis not indicated Code status full code Subjective Date/time seen: 01/23/22 08:20 Interval history: Patient very tearful about not having insurance and may be not been able to afford medications. No overnight events noted. No chest pain or shortness of breath. No nausea, vomiting or diarrhea. No fevers or chills. Review of Systems Review of Systems: All systems reviewed & are unremarkable except as noted in HPI and below Exam Narrative: General: No acute distress, alert and oriented per baseline HEENT: Atraumatic, normocephalic, mucous membranes moist CV: Regular rate and rhythm, S1, S2 Lungs: Clear to auscultation bilaterally, no rales or crackles noted, no wheezes, somewhat diminished at bases Abdomen: Soft, nontender, nondistended Extremities: Normal to inspection Skin: No rashes noted, no lesions or wounds seen Psych: Euthymic, normal affect Objective Data Vital Signs Vital Signs: Vital Signs - 24 hr 01/22/22 12:00 01/22/22 14:08 01/22/22 14:57 Temperature 97.5 F L Pulse Rate 64 65 Respiratory Rate 14 Blood Pressure 127/74 Pulse Oximetry 100 97 Oxygen Delivery Nasal Cannula Oxygen Flow Rate 2 01/22/22 15:15 01/22/22 18:00 01/22/22 16:00 Temperature Pulse Rate 60 60 Respiratory Rate Blood Pressure Pulse Oximetry 95 Oxygen Delivery Room Air Oxygen Flow Rate 01/22/22 20:00 01/22/22 20:49 01/22/22 20:00 Temperature 96.9 F L Pulse Rate 66 66 68 Respiratory Rate 18 Blood Pressure 147/94 H Pulse Oximetry 99 Oxygen Delivery Oxygen Flow Rate 01/22/22 22:00 01/23/22 00:00 01/23/22 02:00 Temperature Pulse Rate 70 61 77 Respiratory Rate Blood Pressure Pulse Oximetry Oxygen Delivery Oxygen Flow Rate 01/23/22 04:00 01/23/22 04:00 Temperature 96.8 F L Pulse Rate 65 65 Respiratory Rate 18 Blood Pressure 127/87 Pulse Oximetry 98 O
--- NOTE | 2022-01-23 08:49 | PM.PNCARD ---
Progress Note: A&P Assessment and Plan (1) Acute systolic CHF (congestive heart failure): Code(s): I50.21 - Acute systolic (congestive) heart failure Status: Acute Assessment and Plan: Patient presents with new onset of CHF Likely due to hypertensive heart disease Cardiomyopathy, EF 25-30% Underwent lexiscan stress test yesterday that showed a large area of severe mixed infarct and ischemia involving left ventricular apex, apical inferior, apical lateral, and mid inferolateral segments, mid to basal anterolateral segments of left ventricle. Recommend coronary angiogram when CHF and kidney function have improved. Discussed the concept of a LifeVest with him for prevention of sudden cardiac . Is agreeable to this and would like to proceed with a life vest. Order has been placed. Stable on p.o. furosemide today. Kidney function improving. Will stop his lisinopril and shift him to an ARB with the intention of starting therapy with Entresto at some point. Despite his lack of insurance he should be able to afford this with a $10/month co-pay card which will be provided to him. Add spironolactone when renal function improves CHF counseling Accurate intake and output Consult dietitian for education on heart healthy diet, low-sodium diet. (2) Cardiomyopathy: Code(s): I42.9 - Cardiomyopathy, unspecified Status: Acute Assessment and Plan: New cardiomyopathy, EF 25-30% (3) Hypertensive heart disease: Code(s): I11.9 - Hypertensive heart disease without heart failure Status: Acute Assessment and Plan: Severe uncontrolled hypertension with hypertensive heart disease Counseled patient about hypertension. Blood pressure is improving. (4) CKD (chronic kidney disease) stage 3, GFR 30-59 ml/min: Code(s): N18.30 - Chronic kidney disease, stage 3 unspecified Status: Acute Assessment and Plan: Has had some degree of chronic kidney disease since 2020 Likely related to hypertension Daily BMP while diuresing (5) Uninsured: Code(s): Z59.89 - Other problems related to housing and economic circumstances Status: Acute Assessment and Plan: I believe the patient is uninsured and it has been difficult for the patient to have ongoing medical care and follow-up. (6) H/O: stroke: Code(s): Z86.73 - Personal history of transient ischemic attack (TIA), and cerebral infarction without residual deficits Status: Acute Assessment and Plan: Multiple strokes in 2020 Recommend resumption of aspirin and statin therapy. Subjective Date/time seen: 01/23/22 08:49 Cardiology follow up for cardiomyopathy, CHF Interval history: Feeling much better today. His breathing has improved significantly. S/p thoracentesis yesterday with 300mL fluid removed. No swelling. Date of service 01/23/2022: Continues to improve. He required some oxygen overnight but is not feeling short of breath at the time of my visit with him. Does not have any swelling. Denies chest pain, palpitations. Review of Systems Constitutional: Constitutional: Denies fever(s) Eyes: Eyes: Reports no additional eye complaints ENT: Denies epistaxis Cardiovascular: Cardiovascular: Reports chest pain, Denies pedal edema, Denies leg edema, Denies lightheadedness, Reports dyspnea and Reports dyspnea on exertion Respiratory: Respiratory: Reports chest congestion, Reports cough, Reports dyspnea and Reports dyspnea on exertion Gastrointestinal: Gastrointestinal: Denies abdominal pain and Denies hematochezia Genitourinary: Genitourinary: Denies hematuria and Denies dysuria Musculoskeletal: Musculoskeletal: Reports arthralgias (Believes he had gout involving his left ankle) Integumentary/Breasts: Skin/Breast: Reports system reviewed and no additional complaints, except as docu Neurologic: Reports system reviewed and no additional complaints, except as documented, De
[2022-01-23] MEDS: hydroCHLOROthiazide 12.5 MG CAPSULE PO (09:27)
[2022-01-23] MEDS: lisinopriL 10 MG TABLET PO (09:27)
[2022-01-23] MEDS: carvediloL 6.25 MG TABLET PO ×2 (09:27→20:24)
[2022-01-23] MEDS: FUROSEMIDE 40 MG TABLET PO ×2 (09:28→17:04)
[2022-01-23] MEDS: ENOXAPARIN 40 MG/0.4 ML SYRINGE SUB-Q (09:28)
--- NOTE | 2022-01-23 11:52 | PC.NURSE ---
Pt placed on 1500 fluid restriction. Order wasn't entered until after pt's water jugs had been filled. Pt refusing to allow us to take the two 500mL water jugs and two 222mL sodas from him. Therefore, I contacted dietary and informed them that pt is not to have any drinks on his trays for the remainder of today. Pt will have to use those fluids for any remaining meds. shift superintendent will be made aware of these events so that proper distribution of fluids can resume tomorrow.
[2022-01-24] VITALS (9 sets, daily range): BP systolic 122–164; BP diastolic 73–119; PULSE 52–78; RESP 18–20; TEMP 36.5–36.9; O2SAT 97–99
[2022-01-24] MEDS: ATORVASTATIN 40 MG TABLET PO (08:42)
[2022-01-24] MEDS: hydroCHLOROthiazide 12.5 MG CAPSULE PO (08:42)
[2022-01-24] MEDS: carvediloL 6.25 MG TABLET PO ×2 (08:42→21:43)
[2022-01-24] MEDS: ENOXAPARIN 40 MG/0.4 ML SYRINGE SUB-Q (08:42)
[2022-01-24] MEDS: ASPIRIN 81 MG ENTERIC TABLET PO (08:43)
[2022-01-24] MEDS: FUROSEMIDE 40 MG TABLET PO ×2 (08:43→15:15)
[2022-01-24] MEDS: LOSARTAN POTASSIUM 25 MG TABLET PO (08:43)
--- NOTE | 2022-01-24 08:46 | PC.NURSE ---
Pt began screaming cursing and verbally abusing me as I attempted to explain to him the fluid restriction that the doctor had placed pt on yesterday. I asked to refrain from speaking to me like that to which pt screamed vulgar obscenities at me. I left the room.
--- NOTE | 2022-01-24 08:57 | PC.NURSE ---
The tech attempted to take pt's vitals this morning. During the process he verbally abused the tech and called her vulgar names as well as demanding she leave his room.
[2022-01-24] MEDS: hydrALAZINE HCL 20 MG/ML VIAL 10 MG IV PUSH ×2 (09:10→21:43)
--- NOTE | 2022-01-24 09:48 | PM.IMPN ---
Progress Note: A&P Assessment and Plan (1) Acute systolic CHF (congestive heart failure): Code(s): I50.21 - Acute systolic (congestive) heart failure Status: Acute Assessment and Plan: Appreciate cardiology consultation Patient will need a LifeVest, losartan 25 mg has been increased to 50 mg daily, goal of Entresto at some point Continue oral Lasix, when kidney function resolves, will add spironolactone They are recommending coronary angiogram when kidney function resolves (2) Cardiomyopathy: Code(s): I42.9 - Cardiomyopathy, unspecified Status: Acute Assessment and Plan: New cardiomyopathy, EF 25-30% (3) Hypertensive heart disease: Code(s): I11.9 - Hypertensive heart disease without heart failure Status: Acute Assessment and Plan: Severe uncontrolled hypertension with hypertensive heart disease Counseled patient about hypertension. Blood pressure is improving. (4) CKD (chronic kidney disease) stage 3, GFR 30-59 ml/min: Code(s): N18.30 - Chronic kidney disease, stage 3 unspecified Status: Acute Assessment and Plan: Has had some degree of chronic kidney disease since 2019 Likely related to hypertension Daily BMP while diuresing (5) Uninsured: Code(s): Z59.89 - Other problems related to housing and economic circumstances Status: Acute Assessment and Plan: I believe the patient is uninsured and it has been difficult for the patient to have ongoing medical care and follow-up. (6) H/O: stroke: Code(s): Z86.73 - Personal history of transient ischemic attack (TIA), and cerebral infarction without residual deficits Status: Acute Assessment and Plan: Continue aspirin, statin (7) Acute respiratory failure: Code(s): J96.00 - Acute respiratory failure, unspecified whether with hypoxia or hypercapnia Status: Acute Assessment and Plan: Resolved, stable on room air, likely secondary to heart failure Status post thoracentesis with 300 mL removed Plan DVT prophylaxis with Lovenox GI prophylaxis not indicated Code status full code Subjective Date/time seen: 01/24/22 09:48 Interval history: Patient is eager to go home. He had lots of questions about his new medications and his new diagnosis. Extensive time spent discussing his diagnosis, medications answering his questions. No overnight events noted. No chest pain or shortness of breath. No nausea, vomiting or diarrhea. No fevers or chills. Review of Systems Review of Systems: All systems reviewed & are unremarkable except as noted in HPI and below Exam Narrative: General: No acute distress, alert and oriented per baseline HEENT: Atraumatic, normocephalic, mucous membranes moist CV: Regular rate and rhythm, S1, S2 Lungs: Clear to auscultation bilaterally, no rales or crackles noted, no wheezes, somewhat diminished at bases Abdomen: Soft, nontender, nondistended Extremities: Normal to inspection Skin: No rashes noted, no lesions or wounds seen Psych: Euthymic, normal affect Objective Data Vital Signs Vital Signs: Vital Signs - 24 hr 01/23/22 12:00 01/23/22 12:00 01/23/22 16:00 Temperature 97.3 F L 97.2 F L Pulse Rate 71 65 64 Respiratory Rate 20 20 Blood Pressure 126/75 143/95 H Pulse Oximetry 100 98 Oxygen Delivery Oxygen Flow Rate Fraction of Inspired Oxygen 01/23/22 16:00 01/23/22 20:00 01/23/22 20:24 Temperature 98.3 F Pulse Rate 66 59 L 78 Respiratory Rate 16 Blood Pressure 151/77 H Pulse Oximetry 98 Oxygen Delivery Oxygen Flow Rate Fraction of Inspired Oxygen 01/23/22 23:35 01/23/22 20:20 01/23/22 22:40 Temperature 97.9 F Pulse Rate 59 L 59 L Respiratory Rate 18 18 Blood Pressure 132/82 Pulse Oximetry 97 97 97 Oxygen Delivery Room Air Nasal Cannula Oxygen Flow Rate 2 Fraction of Inspired Oxygen 2 01/24/22 04:00 01/23/22 20:00 01/24/22 00:05
[2022-01-24 10:34] LABS: Basophils Percent Auto 0.6 % (0.2-1.2); Eosinophils Absolute Auto 0.2 K/mm3 (0-0.3); Eosinophils Percent Auto 3.2 % (0-4.4); Hematocrit 41.3 % (42.0-52.0); Hemoglobin 13.3 g/dL (14.0-18.0); Immature Granulocyte Absolute 0.04 K/mm3 (0.00-0.031); Immature Granulocyte Percent A 0.6 % (0-0.5); Lymphocytes Absolute Auto 1.02 K/mm3 (0.9-3.2); Lymphocytes Percent Auto 15.4 % (18.3-44.2); Mean Corpuscular HGB Conc 32.2 g/dl (32-36); Mean Corpuscular Hemoglobin 29.1 pg (26-34); Mean Corpuscular Volume 90.4 fl (80-100); Mean Platelet Volume 10.8 fl (7.4-10.4); Monocytes Absolute Auto 0.4 K/mm3 (0.1-0.6); Monocytes Percent Auto 5.4 % (2.6-8.5); Neutrophils Percent Auto 74.8 % (45.5-73.1); Platelet Count Result 305 k/mm3 (150-375); Red Blood Count 4.57 M/mm3 (4.6-6.20); Red Cell Distribution Width 14.9 % (11.5-14.5); White Blood Count 6.6 K/mm3 (4.5-10.0)
[2022-01-24 10:44] LABS: Alanine Aminotransferase 26 U/L (6-50); Albumin Level 3.7 g/dL (3.5-5.1); Alkaline Phosphatase 91 U/L (38-126); Anion Gap 12 mmol/L (8-16); Aspartate Amino Transferase 23 U/L (17-59); Bilirubin,Total 0.8 mg/dL (0.2-1.3); Blood Urea Nitrogen 29 mg/dL (9-20); Calcium 8.4 mg/dL (8.4-10.2); Carbon Dioxide 32 mmol/L (22-30); Chloride 95 mmol/L (98-107); Estimated CRCL calculation 50 ml/min; Estimated Glomerular Filt Rate 47; Glucose 174 mg/dL (65-110); Potassium 3.2 mmol/L (3.4-5.0); Sodium 139 mmol/L (137-145)
--- NOTE | 2022-01-24 10:45 | PM.PNCARD ---
Progress Note: A&P Assessment and Plan (1) Cardiomyopathy: Code(s): I42.9 - Cardiomyopathy, unspecified Status: Acute (2) Hypertensive heart disease: Code(s): I11.9 - Hypertensive heart disease without heart failure Status: Acute Plan 61-year-old patient with congestive heart failure left ventricular systolic dysfunction and likely related to untreated hypertension due to noncompliance with medication. He is being started on guideline directed medical therapy. I am going to advance his losartan dose to 50 mg starting tomorrow. LifeVest has been ordered. Likely he can be discharged in the next 24-48 hours with plans are outpatient follow-up with my partner, Dr. Landry. Klaus Dalton MD [facility] Subjective Date/time seen: Date of service: 01/24/22 10:45 Interval history: Feeling much better today. His breathing has improved significantly. S/p thoracentesis yesterday with 300mL fluid removed. No swelling. Date of service 01/23/2022: Continues to improve. He required some oxygen overnight but is not feeling short of breath at the time of my visit with him. Does not have any swelling. Denies chest pain, palpitations. Date of service 01/24/2022: Patient is resting comfortably watching television head of the bed elevated about 45?. No shortness of breath any longer. Exam Const: General: comfortable and no acute distress Other: Well-developed well-nourished gentleman no distress offers no cardiovascular complaints HENMT: Mouth: Yes moist mucous membranes Neck: Neck: supple and no JVD Resp: Effort & Inspection: normal respiratory effort Auscultation: clear to auscultation bilaterally Other: Pulmonary rales have resolved Cardio: Rate: regular rate Rhythm: regular rhythm Other: S4 is audible no murmur GI: GI Palp: Yes Soft to palpation Auscultation: normal bowel sounds Skin: General skin exam: normal color Neuro: Other: Alert and oriented x3 Extrem: Other: Currently no edema Objective Data Vital Signs Vital Signs: Vital Signs - 24 hr 01/23/22 12:00 01/23/22 12:00 01/23/22 16:00 Temperature 36.3 C L 36.2 C L Pulse Rate 71 65 64 Respiratory Rate 20 20 Blood Pressure 126/75 143/95 H Pulse Oximetry 100 98 Oxygen Delivery Oxygen Flow Rate Fraction of Inspired Oxygen 01/23/22 16:00 01/23/22 20:00 01/23/22 20:24 Temperature 36.8 C Pulse Rate 66 59 L 78 Respiratory Rate 16 Blood Pressure 151/77 H Pulse Oximetry 98 Oxygen Delivery Oxygen Flow Rate Fraction of Inspired Oxygen 01/23/22 23:35 01/23/22 20:20 01/23/22 22:40 Temperature 36.6 C Pulse Rate 59 L 59 L Respiratory Rate 18 18 Blood Pressure 132/82 Pulse Oximetry 97 97 97 Oxygen Delivery Room Air Nasal Cannula Oxygen Flow Rate 2 Fraction of Inspired Oxygen 2 01/24/22 04:00 01/23/22 20:00 01/24/22 00:05 Temperature 36.9 C Pulse Rate 67 68 65 Respiratory Rate 18 Blood Pressure 122/73 Pulse Oximetry 99 Oxygen Delivery Oxygen Flow Rate Fraction of Inspired Oxygen 01/24/22 04:00 01/24/22 08:42 01/24/22 08:00 Temperature Pulse Rate 61 78 52 L Respiratory Rate Blood Pressure Pulse Oximetry Oxygen Delivery Oxygen Flow Rate Fraction of Inspired Oxygen 01/24/22 08:00 01/24/22 08:00 Temperature 36.5 C Pulse Rate 74 Respiratory Rate 20 Blood Pressure 164/103 H Pulse Oximetry 98 Oxygen Delivery Room Air Oxygen Flow Rate Fraction of Inspired Oxygen Intake/Output Intake/Output: Intake & Output 01/21/22 01/22/22 01/23/22 01/24/22 23:59 23:59 23:59 23:59 Intake Total 450 2020 1940 120 Output Total 0007 997 2548 1200 Balance -950 1720 859 -5721 Meds/Results Medications: Active Medications Generic Name Dose Route Start Last Admin Trade Name Freq PRN Reason Stop Dose Admin Acetaminophen 650 mg 01/20/22 15:03 Acetaminophen 325 Mg Tablet PO Q4H PRN Mild Pa
[2022-01-24] MEDS: POTASSIUM CHLORIDE 20 MEQ TABLET 40 MEQ PO (15:15)
[2022-01-25] VITALS (9 sets, daily range): BP systolic 118–150; BP diastolic 65–91; PULSE 58–80; RESP 18–20; TEMP 36.1–36.4; O2SAT 97–99
--- NOTE | 2022-01-25 03:12 | PCRCNOTE ---
pt has refused use of NIV since 01/21/22; pt is currently on room air with a 97% O2sat
[2022-01-25 06:20] LABS: Basophils Absolute Auto 0.1 K/mm3 (0.0-0.1); Basophils Percent Auto 0.8 % (0.2-1.2); Eosinophils Absolute Auto 0.3 K/mm3 (0-0.3); Eosinophils Percent Auto 4.3 % (0-4.4); Hematocrit 43.1 % (42.0-52.0); Hemoglobin 13.8 g/dL (14.0-18.0); Immature Granulocyte Absolute 0.05 K/mm3 (0.00-0.031); Immature Granulocyte Percent A 0.6 % (0-0.5); Lymphocytes Absolute Auto 1.41 K/mm3 (0.9-3.2); Lymphocytes Percent Auto 17.9 % (18.3-44.2); Mean Corpuscular Hemoglobin 28.8 pg (26-34); Mean Corpuscular Volume 89.8 fl (80-100); Mean Platelet Volume 10.5 fl (7.4-10.4); Monocytes Absolute Auto 0.8 K/mm3 (0.1-0.6); Monocytes Percent Auto 9.8 % (2.6-8.5); Neutrophils Absolute Auto 5.3 K/mm3 (1.3-6.7); Neutrophils Percent Auto 66.6 % (45.5-73.1); Platelet Count Result 328 k/mm3 (150-375); Red Cell Distribution Width 14.9 % (11.5-14.5); White Blood Count 7.9 K/mm3 (4.5-10.0)
[2022-01-25 06:34] LABS: Alanine Aminotransferase 24 U/L (6-50); Alkaline Phosphatase 93 U/L (38-126); Anion Gap 12 mmol/L (8-16); Aspartate Amino Transferase 25 U/L (17-59); Blood Urea Nitrogen 27 mg/dL (9-20); Calcium 8.7 mg/dL (8.4-10.2); Carbon Dioxide 33 mmol/L (22-30); Chloride 97 mmol/L (98-107); Estimated CRCL calculation 50 ml/min; Estimated Glomerular Filt Rate 47; Glucose 100 mg/dL (65-110); Potassium 3.7 mmol/L (3.4-5.0); Sodium 142 mmol/L (137-145)
[2022-01-25] MEDS: ENOXAPARIN 40 MG/0.4 ML SYRINGE SUB-Q (08:26)
[2022-01-25] MEDS: carvediloL 6.25 MG TABLET PO ×2 (08:26→20:26)
[2022-01-25] MEDS: FUROSEMIDE 40 MG TABLET PO ×2 (08:27→16:48)
[2022-01-25] MEDS: LOSARTAN POTASSIUM 50 MG TABLET PO (08:27)
[2022-01-25] MEDS: ASPIRIN 81 MG ENTERIC TABLET PO (08:27)
[2022-01-25] MEDS: hydroCHLOROthiazide 12.5 MG CAPSULE PO (08:27)
[2022-01-25] MEDS: ATORVASTATIN 40 MG TABLET PO (08:27)
--- NOTE | 2022-01-25 12:56 | PM.PNCARD ---
Progress Note: A&P Assessment and Plan (1) CHF (congestive heart failure): Code(s): I50.9 - Heart failure, unspecified Status: Acute (2) Acute systolic CHF (congestive heart failure): Code(s): I50.21 - Acute systolic (congestive) heart failure Status: Acute Plan 61-year-old man with left ventricular dysfunction and decompensated heart failure. He is now in a state of compensation on the above medical therapy. He is stable enough for discharge in my opinion. He should follow up in our office with my partner, Dr. Silva from and medical titration should be carried out and at this point I would not push the issue of catheterization since his stress test primarily suggest evidence of a previous infarction and lower ejection fraction we do not see a lot of myocardium at risk and he does have renal insufficiency which must be considered in terms of performing angiography. Klaus Dalton MD [facility] Subjective Date/time seen: Date of service: 01/25/22 12:56 Interval history: Follow-up visit in this 61-year-old man with congestive heart failure, left ventricular systolic dysfunction. He feels relatively well the last couple of days no longer short of breath. He has been started on guideline directed medical therapy including beta-eleni ARB and diuretic. Exam Const: General: comfortable and no acute distress Other: Overweight white male no distress at this time HENMT: Mouth: Yes moist mucous membranes Eyes: Sclera: sclerae normal Neck: Neck: supple and no JVD Resp: Effort & Inspection: normal respiratory effort Auscultation: clear to auscultation bilaterally Other: No pulmonary rales at this time Cardio: Rate: regular rate Rhythm: regular rhythm Other: Currently no murmur no gallop GI: GI Palp: Yes Soft to palpation Auscultation: normal bowel sounds Neuro: Other: Alert and oriented x3 Extrem: Other: No peripheral edema Objective Data Vital Signs Vital Signs: Vital Signs - 24 hr 01/24/22 16:00 01/24/22 16:00 01/24/22 20:38 Temperature 36.7 C Pulse Rate 74 75 Respiratory Rate 18 Blood Pressure 138/81 Pulse Oximetry 97 97 Oxygen Delivery Room Air Fraction of Inspired Oxygen 01/24/22 21:43 01/24/22 20:00 01/24/22 20:00 Temperature 36.8 C Pulse Rate 75 67 Respiratory Rate 19 Blood Pressure 153/119 H Pulse Oximetry 97 Oxygen Delivery Room Air Fraction of Inspired Oxygen 2 01/24/22 20:00 01/25/22 00:00 01/25/22 04:00 Temperature 36.4 C 36.1 C L Pulse Rate 66 71 58 L Respiratory Rate 18 19 Blood Pressure 147/90 H 150/91 H Pulse Oximetry 99 97 Oxygen Delivery Fraction of Inspired Oxygen 01/25/22 08:26 01/25/22 08:00 01/25/22 08:00 Temperature 36.2 C L Pulse Rate 62 62 Respiratory Rate 18 Blood Pressure 132/65 Pulse Oximetry 98 Oxygen Delivery Room Air Fraction of Inspired Oxygen 01/25/22 08:00 Temperature Pulse Rate 78 Respiratory Rate Blood Pressure Pulse Oximetry Oxygen Delivery Fraction of Inspired Oxygen Intake/Output Intake/Output: Intake & Output 01/22/22 01/23/22 01/24/22 01/25/22 23:59 23:59 23:59 23:59 Intake Total 2020 1940 582 240 Output Total 300 1300 3400 625 Balance 3762 118 -2068 -781 Meds/Results Medications: Active Medications Generic Name Dose Route Start Last Admin Trade Name Freq PRN Reason Stop Dose Admin Acetaminophen 650 mg 01/20/22 15:03 Acetaminophen 325 Mg Tablet PO Q4H PRN Mild Pain (1-3) or Fever Hydrocodone Bitart/Acetaminophen 1 tab 01/20/22 15:03 Hydrocodone/Acetaminophen (*Crx) 5-325 Mg Tablet PO Q4H PRN Moderate Pain (4-10) Aspirin 81 mg 01/24/22 09:00 01/25/22 08:27 Aspirin 81 Mg Enteric Tablet PO 81 mg QAM COY Administration Atorvastatin Calcium 40 mg 01/24/22 09:00 01/25/22 08:27 Atorvastatin 40 Mg Tablet PO 40 mg DAILY COY Administration Carvedilol 6.25 mg 01/20/22 2
--- NOTE | 2022-01-25 15:33 | PM.IMPN ---
Progress Note: A&P Assessment and Plan (1) Acute systolic CHF (congestive heart failure): Code(s): I50.21 - Acute systolic (congestive) heart failure Status: Acute Assessment and Plan: Appreciate cardiology consultation Patient will need a LifeVest, losartan 25 mg has been increased to 50 mg daily, goal of Entresto at some point Continue oral Lasix, when kidney function resolves, will add spironolactone They are recommending coronary angiogram when kidney function resolves 01/25: Cardiology now stating okay to discharge with outpatient follow-up, no need for heart catheterization. Will discharge once patient receives LifeVest. Further medical management can be done on an outpatient basis. (2) Cardiomyopathy: Code(s): I42.9 - Cardiomyopathy, unspecified Status: Acute Assessment and Plan: New cardiomyopathy, EF 25-30% (3) Hypertensive heart disease: Code(s): I11.9 - Hypertensive heart disease without heart failure Status: Acute Assessment and Plan: Controlled (4) CKD (chronic kidney disease) stage 3, GFR 30-59 ml/min: Code(s): N18.30 - Chronic kidney disease, stage 3 unspecified Status: Acute Assessment and Plan: At baseline with a creatinine of 1.5 (5) Uninsured: Code(s): Z59.89 - Other problems related to housing and economic circumstances Status: Acute Assessment and Plan: Economic issues and noncompliance issues noted, discussed extensively with patient, patient appears to have plans in place for this to not affect future care (6) H/O: stroke: Code(s): Z86.73 - Personal history of transient ischemic attack (TIA), and cerebral infarction without residual deficits Status: Acute Assessment and Plan: Continue aspirin, statin (7) Acute respiratory failure: Code(s): J96.00 - Acute respiratory failure, unspecified whether with hypoxia or hypercapnia Status: Acute Assessment and Plan: Resolved, stable on room air, likely secondary to heart failure Status post thoracentesis with 300 mL removed at admission Plan DVT prophylaxis with Lovenox GI prophylaxis not indicated Code status full code Subjective Date/time seen: 01/25/22 15:33 Interval history: Patient states he feels well today. No overnight events noted. No chest pain or shortness of breath. No nausea, vomiting or diarrhea. No fevers or chills. Review of Systems Review of Systems: 12 point review of systems was assessed and was negative except as noted in the HPI Exam Narrative: General: No acute distress, alert and oriented per baseline HEENT: Atraumatic, normocephalic, mucous membranes moist CV: Regular rate and rhythm, S1, S2, no murmurs rubs or gallops noted Lungs: Clear to auscultation bilaterally, no rales or crackles noted, no wheezes, good air entry Abdomen: Soft, nontender, nondistended Extremities: Normal to inspection Skin: No rashes noted, no lesions or wounds seen Psych: Euthymic, normal affect Neuro: Cranial nerves 2-12 grossly intact, strength +5/5 upper and lower extremities bilaterally Objective Data Vital Signs Vital Signs: Vital Signs - 24 hr 01/24/22 16:00 01/24/22 16:00 01/24/22 20:38 Temperature 98.0 F Pulse Rate 74 75 Respiratory Rate 18 Blood Pressure 138/81 Pulse Oximetry 97 97 Oxygen Delivery Room Air Fraction of Inspired Oxygen 01/24/22 21:43 01/24/22 20:00 01/24/22 20:00 Temperature 98.2 F Pulse Rate 75 67 Respiratory Rate 19 Blood Pressure 153/119 H Pulse Oximetry 97 Oxygen Delivery Room Air Fraction of Inspired Oxygen 2 01/24/22 20:00 01/25/22 00:00 01/25/22 04:00 Temperature 97.6 F 97.0 F L Pulse Rate 66 71 58 L Respiratory Rate 18 19 Blood Pressure 147/90 H 150/91 H Pulse Oximetry 99 97 Oxygen Delivery Fraction of Inspired Oxygen 01/25/22 08:26 01/25/22 08:00 01/25/22 08:00 Temperature 97.2 F L Pulse Rate 62
[2022-01-25 20:13] LABS: Glucose Pleural Fluid 108 mg/dL; LDH Pleural Fluid 59 U/L; Total Protein Pleural Fluid <3.0 g/dL
[2022-01-25 22:29] LABS: Albumin Pleural Fluid 1.3 g/dL
[2022-01-26] VITALS (9 sets, daily range): BP systolic 138–160; BP diastolic 71–112; PULSE 57–79; RESP 16–18; TEMP 36.1–36.7; O2SAT 98–100
[2022-01-26 06:03] LABS: Basophils Absolute Auto 0.1 K/mm3 (0.0-0.1); Basophils Percent Auto 0.8 % (0.2-1.2); Eosinophils Absolute Auto 0.4 K/mm3 (0-0.3); Eosinophils Percent Auto 4.8 % (0-4.4); Hematocrit 41.9 % (42.0-52.0); Hemoglobin 13.5 g/dL (14.0-18.0); Immature Granulocyte Absolute 0.04 K/mm3 (0.00-0.031); Immature Granulocyte Percent A 0.5 % (0-0.5); Lymphocytes Absolute Auto 1.35 K/mm3 (0.9-3.2); Lymphocytes Percent Auto 17.9 % (18.3-44.2); Mean Corpuscular HGB Conc 32.2 g/dl (32-36); Mean Corpuscular Volume 89.9 fl (80-100); Mean Platelet Volume 10.1 fl (7.4-10.4); Monocytes Absolute Auto 0.8 K/mm3 (0.1-0.6); Monocytes Percent Auto 10.7 % (2.6-8.5); Neutrophils Absolute Auto 4.9 K/mm3 (1.3-6.7); Neutrophils Percent Auto 65.3 % (45.5-73.1); Platelet Count Result 300 k/mm3 (150-375); Red Blood Count 4.66 M/mm3 (4.6-6.20); Red Cell Distribution Width 14.9 % (11.5-14.5); White Blood Count 7.6 K/mm3 (4.5-10.0)
[2022-01-26 06:20] LABS: Alanine Aminotransferase 23 U/L (6-50); Albumin Level 3.8 g/dL (3.5-5.1); Alkaline Phosphatase 89 U/L (38-126); Anion Gap 11 mmol/L (8-16); Aspartate Amino Transferase 26 U/L (17-59); Bilirubin,Total 0.8 mg/dL (0.2-1.3); Blood Urea Nitrogen 30 mg/dL (9-20); Calcium 8.6 mg/dL (8.4-10.2); Carbon Dioxide 34 mmol/L (22-30); Chloride 97 mmol/L (98-107); Estimated CRCL calculation 41 ml/min; Estimated Glomerular Filt Rate 38; Glucose 102 mg/dL (65-110); Potassium 3.6 mmol/L (3.4-5.0); Sodium 142 mmol/L (137-145)
[2022-01-26] MEDS: hydroCHLOROthiazide 12.5 MG CAPSULE PO (08:03)
[2022-01-26] MEDS: ASPIRIN 81 MG ENTERIC TABLET PO (08:03)
[2022-01-26] MEDS: ATORVASTATIN 40 MG TABLET PO (08:03)
[2022-01-26] MEDS: FUROSEMIDE 40 MG TABLET PO (08:03)
[2022-01-26] MEDS: ENOXAPARIN 40 MG/0.4 ML SYRINGE SUB-Q (08:03)
[2022-01-26] MEDS: carvediloL 6.25 MG TABLET PO ×2 (08:03→20:58)
[2022-01-26] MEDS: LOSARTAN POTASSIUM 50 MG TABLET PO (08:03)
--- NOTE | 2022-01-26 18:11 | PM.IMPN ---
Progress Note: A&P Assessment and Plan (1) Acute systolic CHF (congestive heart failure): Code(s): I50.21 - Acute systolic (congestive) heart failure Status: Acute Assessment and Plan: Appreciate cardiology consultation Patient will need a LifeVest, losartan 25 mg has been increased to 50 mg daily, goal of Entresto at some point Continue oral Lasix, when kidney function resolves, will add spironolactone They are recommending coronary angiogram when kidney function resolves 01/25: Cardiology now stating okay to discharge with outpatient follow-up, no need for heart catheterization. Will discharge once patient receives LifeVest. Further medical management can be done on an outpatient basis. 01/26: Planning to discharge tomorrow after patient receives LifeVest, continue Coreg, Lasix, losartan (2) Cardiomyopathy: Code(s): I42.9 - Cardiomyopathy, unspecified Status: Acute Assessment and Plan: New cardiomyopathy, EF 25-30% (3) Hypertensive heart disease: Code(s): I11.9 - Hypertensive heart disease without heart failure Status: Acute Assessment and Plan: Controlled (4) CKD (chronic kidney disease) stage 3, GFR 30-59 ml/min: Code(s): N18.30 - Chronic kidney disease, stage 3 unspecified Status: Acute Assessment and Plan: At baseline with a creatinine of 1.5 (5) Uninsured: Code(s): Z59.89 - Other problems related to housing and economic circumstances Status: Acute Assessment and Plan: Economic issues and noncompliance issues noted, discussed extensively with patient, patient appears to have plans in place for this to not affect future care (6) H/O: stroke: Code(s): Z86.73 - Personal history of transient ischemic attack (TIA), and cerebral infarction without residual deficits Status: Acute Assessment and Plan: Continue aspirin, statin (7) Acute respiratory failure: Code(s): J96.00 - Acute respiratory failure, unspecified whether with hypoxia or hypercapnia Status: Acute Assessment and Plan: Resolved, stable on room air, likely secondary to heart failure Status post thoracentesis with 300 mL removed at admission Plan DVT prophylaxis with Lovenox GI prophylaxis not indicated Code status full code Subjective Date/time seen: 01/26/22 18:11 Interval history: Patient completely asymptomatic. No overnight events noted. No chest pain or shortness of breath. No nausea, vomiting or diarrhea. No fevers or chills. Review of Systems Review of Systems: All systems reviewed & are unremarkable except as noted in HPI and below Exam Narrative: General: No acute distress, alert and oriented per baseline HEENT: Atraumatic, normocephalic, mucous membranes moist CV: Regular rate and rhythm, S1, S2, no murmurs rubs or gallops noted Lungs: Clear to auscultation bilaterally, no rales or crackles noted, no wheezes, good air entry Abdomen: Soft, nontender, nondistended Extremities: Normal to inspection Skin: No rashes noted, no lesions or wounds seen Psych: Euthymic, normal affect Neuro: Cranial nerves 2-12 grossly intact, strength +5/5 upper and lower extremities bilaterally Objective Data Vital Signs Vital Signs: Vital Signs - 24 hr 01/25/22 20:26 01/25/22 20:00 01/25/22 20:00 Temperature 97.6 F Pulse Rate 78 73 68 Respiratory Rate 18 Blood Pressure 129/91 H Pulse Oximetry 99 Oxygen Delivery 01/26/22 01:17 01/26/22 04:00 01/26/22 08:03 Temperature 97.0 F L Pulse Rate 60 71 Respiratory Rate 18 Blood Pressure 149/97 H Pulse Oximetry 98 98 Oxygen Delivery Room Air 01/26/22 08:00 01/26/22 08:00 01/26/22 08:00 Temperature 97.1 F L Pulse Rate 78 64 Respiratory Rate 16 Blood Pressure 154/89 H Pulse Oximetry 99 Oxygen Delivery Room Air 01/26/22 12:00 01/26/22 16:00 Temperature 97.1 F L 97.6 F Pulse Rate 62 57 L Respiratory Rate 16 18 Blo
[2022-01-27] MEDS: hydrALAZINE HCL 20 MG/ML VIAL 10 MG IV PUSH (00:47)
[2022-01-27 03:56] VITALS: BP 135/97; PULSE 69; RESP 17; TEMP 36.6; O2SAT 100
[2022-01-27 05:52] LABS: Basophils Absolute Auto 0.1 K/mm3 (0.0-0.1); Basophils Percent Auto 0.8 % (0.2-1.2); Eosinophils Absolute Auto 0.4 K/mm3 (0-0.3); Eosinophils Percent Auto 5.7 % (0-4.4); Hematocrit 42.4 % (42.0-52.0); Immature Granulocyte Absolute 0.03 K/mm3 (0.00-0.031); Immature Granulocyte Percent A 0.4 % (0-0.5); Lymphocytes Absolute Auto 1.56 K/mm3 (0.9-3.2); Lymphocytes Percent Auto 20.7 % (18.3-44.2); Mean Corpuscular Hemoglobin 29.5 pg (26-34); Mean Corpuscular Volume 89.5 fl (80-100); Mean Platelet Volume 10.2 fl (7.4-10.4); Monocytes Absolute Auto 0.8 K/mm3 (0.1-0.6); Monocytes Percent Auto 10.3 % (2.6-8.5); Neutrophils Absolute Auto 4.7 K/mm3 (1.3-6.7); Neutrophils Percent Auto 62.1 % (45.5-73.1); Platelet Count Result 296 k/mm3 (150-375); Red Blood Count 4.74 M/mm3 (4.6-6.20); Red Cell Distribution Width 14.6 % (11.5-14.5); White Blood Count 7.6 K/mm3 (4.5-10.0)
[2022-01-27 06:06] LABS: Alanine Aminotransferase 24 U/L (6-50); Albumin Level 3.8 g/dL (3.5-5.1); Alkaline Phosphatase 93 U/L (38-126); Anion Gap 15 mmol/L (8-16); Aspartate Amino Transferase 23 U/L (17-59); Bilirubin,Total 0.9 mg/dL (0.2-1.3); Blood Urea Nitrogen 27 mg/dL (9-20); Calcium 8.6 mg/dL (8.4-10.2); Carbon Dioxide 28 mmol/L (22-30); Chloride 98 mmol/L (98-107); Estimated CRCL calculation 53 ml/min; Estimated Glomerular Filt Rate 51; Glucose 98 mg/dL (65-110); Potassium 3.7 mmol/L (3.4-5.0); Sodium 141 mmol/L (137-145)
--- NOTE | 2022-01-27 07:38 | PM.DS ---
DS: Admitting Diagnosis Discharge Date January 27, 2022 Admitting Diagnosis Shortness of breath DS: Discharge Diagnosis Discharge Diagnosis (1) Acute systolic CHF (congestive heart failure): Code(s): I50.21 - Acute systolic (congestive) heart failure Status: Acute Assessment and Plan: Appreciate cardiology consultation Patient will need a LifeVest, losartan 25 mg has been increased to 50 mg daily, goal of Entresto at some point Continue oral Lasix, when kidney function resolves, will add spironolactone They are recommending coronary angiogram when kidney function resolves 01/25: Cardiology now stating okay to discharge with outpatient follow-up, no need for heart catheterization. Will discharge once patient receives LifeVest. Further medical management can be done on an outpatient basis. 01/26: Planning to discharge tomorrow after patient receives LifeVest, continue Coreg, Lasix, losartan (2) Cardiomyopathy: Code(s): I42.9 - Cardiomyopathy, unspecified Status: Acute Assessment and Plan: New cardiomyopathy, EF 25-30% (3) Hypertensive heart disease: Code(s): I11.9 - Hypertensive heart disease without heart failure Status: Acute Assessment and Plan: Controlled (4) CKD (chronic kidney disease) stage 3, GFR 30-59 ml/min: Code(s): N18.30 - Chronic kidney disease, stage 3 unspecified Status: Acute Assessment and Plan: At baseline with a creatinine of 1.5 (5) Uninsured: Code(s): Z59.89 - Other problems related to housing and economic circumstances Status: Acute Assessment and Plan: Economic issues and noncompliance issues noted, discussed extensively with patient, patient appears to have plans in place for this to not affect future care (6) H/O: stroke: Code(s): Z86.73 - Personal history of transient ischemic attack (TIA), and cerebral infarction without residual deficits Status: Acute Assessment and Plan: Continue aspirin, statin (7) Acute respiratory failure: Code(s): J96.00 - Acute respiratory failure, unspecified whether with hypoxia or hypercapnia Status: Acute Assessment and Plan: Resolved, stable on room air, likely secondary to heart failure Status post thoracentesis with 300 mL removed at admission Plan DVT prophylaxis with Lovenox GI prophylaxis not indicated Code status full code DS: Summary Hospital Course Hospital Course: 61 year old male with a past medical history of hypertension who presented to the ED with complaints of shortness of breath.? Patient stated that this all started about 3 weeks ago.? He stated that he thought he had a PNA and started taking Mucinex, however, had no relief.? He stated that today his breathing was much worse, and when he was going to come to the ED that he started to hyperventilate, and he got very nervous so he called an ambulance.? He denies having a cough.? He also stated that he has not been having any urinary dysfunction.? He denies having any abnormal swelling.? He did state that his blood pressure has been running 220/140 while just sitting on the couch.? He stated that he tried to call his primary, however, he was unsuccessful in getting any help.? However, he stated that he was taking the blood pressure medications that were prescribed for him, but it was not showing any improvement with his blood pressure.? He stated that even with the medications his diastolic blood pressure remained above 100.? He also stated that he was not going to take any cholesterol medications? because his labs were fine.? He is concerned about medication in general due to not having any insurance.? He supposedly has hurt himself at work and has been unable to secure any benefits including disability.? He stated that he has been living off of his fpc.? He denies having any problems with appetite.? He denies any chest pain, shortness of breath, nausea vomiting diarrhea con
[2022-01-27] MEDS: ATORVASTATIN 40 MG TABLET PO (07:59)
[2022-01-27] MEDS: ASPIRIN 81 MG ENTERIC TABLET PO (07:59)
[2022-01-27 08:00] VITALS: BP 156/102; PULSE 60; PULSE 70; PULSE 73; RESP 14; TEMP 36.3; O2SAT 100
[2022-01-27] MEDS: FUROSEMIDE 20 MG TABLET 60 MG PO (08:00)
[2022-01-27] MEDS: carvediloL 6.25 MG TABLET PO (08:00)
[2022-01-27] MEDS: LOSARTAN POTASSIUM 50 MG TABLET PO (08:01)
[2022-01-27] MEDS: ENOXAPARIN 40 MG/0.4 ML SYRINGE SUB-Q (08:01)
--- NOTE | 2022-01-27 12:02 | PC.NURSE ---
Dr Salazar notified of patient refusing to get life vest at discharge due to $300 payment up from and $50 payment monthly.
[2022-01-28 14:56] LABS: Amylase, Pleural Fluid 17 U/L
== END 2022-01-27 12:43 | disposition home or self-care (01) | DRG 194 ==
LOC: ANHED 13:04 → ANH3MEDSUR 13:58 → ANHIMU 21:18 → ANH3MEDSUR 01-21 18:03
PROVIDERS: Emergency Medicine; Family Medicine; Nurse Practitioner; Nurse Practitioner Adult Health; Admitting Provider Chiropractor; Emergency Provider Nurse Practitioner Family; Visit Provider Student in an Organized Health Care Education/Training Program
DX: I13.0 Hypertensive heart and chronic kidney disease with heart failure and stage 1 through stage 4 chronic kidney disease, or unspecified chronic kidney disease (principal); J96.00 Acute respiratory failure, unspecified whether with hypoxia or hypercapnia; N17.9 Acute kidney failure, unspecified; N18.30 Chronic kidney disease, stage 3 unspecified; I50.41 Acute combined systolic (congestive) and diastolic (congestive) heart failure; I42.9 Cardiomyopathy, unspecified; J90 Pleural effusion, not elsewhere classified; E78.5 Hyperlipidemia, unspecified; E66.9 Obesity, unspecified; Z68.34 Body mass index [BMI] 34.0-34.9, adult; Z86.73 Personal history of transient ischemic attack (TIA), and cerebral infarction without residual deficits; Z91.14 Patient's other noncompliance with medication regimen; Z59.89 Other problems related to housing and economic circumstances
CPT/HCPCS: 32555; 36415; 36600; 71045; 71046; 71275; 78452; 80053; 80061; 82042; 82150; 82375; 82805; 82945; 82948; 83036; 83050; 83615; 83735; 83880; 83986; 84157; 84311; 84478; 85025; 85610; 87015; 87070; 87075; 87102; 87116; 87205; 87206; 88108; 88184; 88305; 89051; 93005; 93017; 93306; 94002; 94003; 96374; 96375; 96376; 99285; A9270; A9502; G0378; J0360; J1650; J1940; J2785; Q9957; Q9967